=== PATIENT | male | born 1965 | race Caucasian/White ===

== ENCOUNTER 2016-11-04 16:57 | Inpatient (IN) | payer OTHER ==
--- NOTE | 2016-11-04 17:32 | PDOC ---
History of Present Illness - General Chief Complaint: Wound Infection Stated Complaint: INFECTION Time Seen by Provider: 11/04/16 17:27 History Source: Patient - History of Present Illness Timing/Duration: reports: other Location: reports: other (L foot) Past History - Past Medical History Allergies/Adverse Reactions: Allergies Allergy/AdvReac Type Severity Reaction Status Date / Time No Known Allergies Allergy Verified 11/04/16 17:01 Home Medications: Ambulatory Orders Glipizide [Glucotrol -] 10 mg PO BID@0700,1630 #0 tablet 10/29/14 Aspirin [ASA -] 81 mg PO DAILY 12/04/14 Liraglutide [Victoza -] 1.2 mg SQ DAILY@0700 pen.injctr 06/14/15 Insulin (Levemir) [Levemir Vial] 30 units SQ HS 08/06/15 Acetaminophen [Tylenol .Regular Strength -] 650 mg PO Q4H PRN #0 tablet Simvastatin 40 mg PO DAILY 08/25/15 Lisinopril [Prinivil] 5 mg PO DAILY #30 tablet 09/08/15 Anemia: No Asthma: No Cancer: No Cardiac Disorders: No CVA: No COPD: No CHF: No Dementia: No Diabetes: Yes GI Disorders: No Disorders: No HTN: Yes Hypercholesterolemia: Yes Liver Disease: No Suicide Attempt (Hx): No Seizures: No Thyroid Disease: No - Surgical History Abdominal Surgery: No Appendectomy: No Cardiac Surgery: No Cholecystectomy: No Lung Surgery: No Neurologic Surgery: No Orthopedic Surgery: Yes (rt foot 2nd toe amputation) - Immunization History Immunization Up to Date: No - Psycho/Social/Smoking Cessation Hx Anxiety: No Suicidal Ideation: No Smoking Status: No Smoking History: Never smoked Have you smoked in the past 12 months: No Number of Cigarettes Smoked Daily: 0 Information on smoking cessation initiated: No Hx Alcohol Use: No Drug/Substance Use Hx: No Substance Use Type: None Hx Substance Use Treatment: No Review of Systems - Review of Systems Constitutional: No: Chills, Fever, Malaise *Physical Exam - Vital Signs Last Vital Signs Temp Pulse Resp BP Pulse Ox 98.5 F 118 H 18 128/68 99 11/04/16 16:58 11/04/16 16:58 11/04/16 16:58 11/04/16 16:58 11/04/16 16:58 - Physical Exam General Appearance: Yes: Appropriately Dressed. No: Apparent Distress HEENT: positive: Normal Voice Neck: positive: Supple Respiratory/Chest: negative: Respiratory Distress Extremity: positive: Other (large chronic, appearing ulcer with dried pus to site, no active drainage, w/ +surrounding erythema and diffuse edema of foot extending into leg, unable to palpate pusles 2/2 degree of swelling) Integumentary: positive: Dry, Warm Neurologic: positive: Fully Oriented, Alert, Normal Mood/Affect Medical Decision Making - Medical Decision Making 11/04/16 17:32 51-year-old male, morbid obesity, hypertension, chronic hyperkalemia, CAD, insulin-dependent diabetic, status post right second toe amputation, chronic ulcer of left heel with history of osteomyelitis, on suppressive therapy with bactrim, follows up in wound care clinic, now presents with worsening swelling, pain and erythema to left foot x several days. Now unable to bear weight with his cane and "offload shoe" as per patient. No fever, chills, nausea, vomiting , and feels well otherwise. See exam R/o recurrent osteomyelitis -pain control -IV abx (prior wound cx reviewed, pt was treated w/ vanc and levaquin during prior admission for osteo) -labs including esr/crp -XR -contact PMD for admission 11/04/16 18:23 *DC/Admit/Observation/Transfer Diagnosis at time of Disposition: Cellulitis of foot - Discharge Dispostion Condition at time of disposition: Fair Admit: Yes
[2016-11-04] MEDS ORDERED: VANCOMYCIN 1,000 MG in DEXTROSE 5%-WATER - 250 ML IVPB ONE (18:13)
[2016-11-04] MEDS ORDERED: LEVOFLOXACIN 750 MG IVPB 150 ML IVPB ONE ×2 (18:14→18:57)
[2016-11-04] MEDS ORDERED: VANCOMYCIN 1 GRAM (PRE-DOCKED) 250 ML IVPB ONE (18:56)
[2016-11-04 19:22] LABS: MCHC 30.8 g/dl (32.0-35.9); MEAN CELL VOLUME 62.5 fl (80-96); MEAN PLT VOLUME 6.8 fl (7.5-11.1); PLATELET COUNT 435 K/MM3 (134-434); RDW 18.5 % (11.9-15.9); WHITE BLOOD COUNT 11.1 K/mm3 (4.0-10.0)
[2016-11-04 19:23] LABS: MCH 19.2 pg (25.7-33.7)
[2016-11-04 19:50] LABS: ALBUMIN 2.8 g/dl (3.4-5.0); BILIRUBIN,TOTAL 0.2 mg/dL (0.2-1.0); CALCIUM 8.7 mg/dL (8.5-10.1); COCKROFT - GAULT 104.78; CREATININE 1.7 mg/dL (0.7-1.3); TOT PROT 7.9 g/dl (6.4-8.2)
[2016-11-04 20:29] LABS: ANISOCYTOSIS 2+; HYPOCHROMIA 2+; MICROCYTOSIS 2+; OVALOCYTES 1+; PLATELET ESTIMATE ADEQUATE (NORMAL); POIKILOCYTOSIS 1+; POLYCHROMASIA 1+
[2016-11-05] MEDS ORDERED: ACETAMINOPHEN 325 MG TABLET (FP) PO PRN (00:36)
[2016-11-05 06:36] LABS: BASOPHIL 0.2 % (0-2.0); MCHC 31.5 g/dl (32.0-35.9); MEAN PLT VOLUME 6.5 fl (7.5-11.1); NEUTROPHILS 78.8 % (42.8-82.8); PLATELET COUNT 369 K/MM3 (134-434); RDW 18.6 % (11.9-15.9); WHITE BLOOD COUNT 6.5 K/mm3 (4.0-10.0)
[2016-11-05 06:50] LABS: MCH 19.8 pg (25.7-33.7)
[2016-11-05 06:55] LABS: ALBUMIN 2.4 g/dl (3.4-5.0); CALCIUM 8.4 mg/dL (8.5-10.1); COCKROFT - GAULT 104.78; CREATININE 1.7 mg/dL (0.7-1.3)
[2016-11-05 06:59] LABS: BILIRUBIN,TOTAL 0.2 mg/dL (0.2-1.0)
[2016-11-05] MEDS: INSULIN SLIDING SCALE (NOVOLOG) 1 VIAL SQ SCH ×4 (07:55→22:59)
[2016-11-05] MEDS: glipiZIDE 10 MG TABLET (FP) PO SCH ×2 (07:55→17:17)
[2016-11-05] MEDS ORDERED: glipiZIDE 5 MG TABLET (FP) ONE (07:56)
--- NOTE | 2016-11-05 09:02 | PN ---
Progress Note, Physician Chief Complaint: ID Full note written dictated diabetic man with multiple admission for chronic calcaneal ostomyelitis left foot. Known to be incurable and advised Bactrim surpression therapy whcih he takes sporatically. See podiatry periodically in wound care debridments in recent past NOW with bloody purulent drainage form the heel. - Current Medication List Current Medications: Active Medications Acetaminophen (Tylenol -) 650 mg PO Q6H PRN PRN Reason: FEVER OR PAIN Aspirin (Asa -) 81 mg PO DAILY TIMMY Atorvastatin Calcium (Lipitor -) 20 mg PO HS TIMMY Glipizide (Glucotrol -) 10 [facility]I [facility] Last Admin: 11/05/16 07:55 Dose: 10 mg Insulin Aspart (Novolog Vial Sliding Scale -) 1 vial SQ ACHS TIMMY PRN Reason: Protocol Last Admin: 11/05/16 07:55 Dose: Not Given Insulin Detemir (Levemir Vial) 30 units SQ HS TIMMY - Objective Vital Signs: Vital Signs Temperature 98.7 F 11/05/16 07:00 Pulse Rate 97 H 11/05/16 07:00 Respiratory Rate 18 11/05/16 07:00 Blood Pressure 126/72 11/05/16 07:00 O2 Sat by Pulse Oximetry (%) 98 11/05/16 07:00 Labs: CBC, BMP 11/05/16 06:00 11/05/16 06:00 Problem List - Problems (1) Chronic osteomyelitis Code(s): M86.60 - OTHER CHRONIC OSTEOMYELITIS, UNSPECIFIED SITE (2) Diabetes 1.5, managed as type 1 Code(s): E13.9 - OTHER SPECIFIED DIABETES MELLITUS WITHOUT COMPLICATIONS Assessment/Plan Microbiology 07/13/13 12:00 Foot - Left Heel Gram Stain - Final 07/13/13 12:00 Foot - Left Heel Wound Culture - Final Pseudomonas Aeruginosa Providencia Stuartii Citrobacter Freundii Complex Diphtheroid/Corynebacterium 11/30/12 14:00 Blood - Peripheral Venous Blood Culture - Final Streptococcus Mitis Group 10/27/14 13:40 Bone Gram Stain - Final 10/27/14 13:40 Bone Tissue Culture - Final Pseudomonas Aeruginosa Mr S Aureus Vr Ec Faecium Mr S Aureus#2 Bacteroides Fragilis Prevotella Bivia 10/15/14 17:45 Tissue-Other Gram Stain - Final 10/15/14 17:45 Tissue-Other Tissue Culture - Final Staphylococcus Aureus Streptococcus Constellatus 10/15/14 17:45 Bone Gram Stain - Final 10/15/14 17:45 Bone Tissue Culture - Final Staphylococcus Aureus Corynebacterium Minutissumum 10/14/14 09:45 Nares - Mrsa Screen - Right MRSA Screen - Final Mr S Aureus 10/14/14 09:45 Nares - Mrsa Screen - Left MRSA Screen - Final Mr S Aureus 10/13/14 16:16 Blood - Peripheral Venous Blood Culture - Final Staphylococcus Aureus 10/13/14 16:10 Blood - Peripheral Venous Blood Culture - Final Staphylococcus Aureus Laboratory Tests 11/04/16 11/04/16 11/05/16 19:12 19:12 06:00 WBC 11.1 H 6.5 D Hgb 7.5 L D Hct 24.5 L D Plt Count 435 H ESR > 130 H BUN Creatinine Creat Clearance w eGFR 11/05/16 06:00 WBC Hgb Hct Plt Count ESR BUN 33 H Creatinine 1.7 H Creat Clearance w eGFR 42.37 Assessment Chronic osteomyelitis incurable Resistant polymicrobial cultures in past with bacteremias Plan Vancom and Zosyn Wound c/s Amputation again discussed with haley Smith MD
--- NOTE | 2016-11-05 09:30 | HP ---
Admitting History and Physical - Primary Care Physician PCP: Nas Platt - Admission Chief Complaint: not feeling well History of Present Illness: Pt 51-year-old male, morbid obesity, hypertension, chronic hyperkalemia, CAD, insulin-dependent diabetic, status post right second toe amputation, chronic ulcer of left heel with history of osteomyelitis, on suppressive therapy with bactrim,--not taking on regular basis-- follows up in wound care clinic, -- presents with worsening swelling, pain and erythema to left foot x several days. Now unable to bear weight with his cane and "offload shoe" as per patient. No fever, chills, nausea, vomiting, pt given abx and admitted to floor for osteo pt also severly anemic-- transfusion ordered Pt has been advised to see gi for anemia work up many times in past -- did not go recently shari was d/[place]ron also due to hyperkalemia chart reviewed pt seen in er History Source: Patient Limitations to Obtaining History: No Limitations - Past Medical History Cardiovascular: Yes: HTN, Hyperlipdemia Infectious Disease: Yes: Other Musculoskeletal: Yes: Other (chronic non healing ulcers of rt foot) Endocrine: Yes: Diabetes Mellitus - Past Surgical History Past Surgical History: Yes: Amputation (right foot --2 nd toe) - Smoking History Smoking history: Never smoked Have you smoked in the past 12 months: No Aproximately how many cigarettes per day: 0 - Alcohol/Substance Use Hx Alcohol Use: No - Social History ADL: Independent History of Recent Travel: No Home Medications - Allergies Allergies/Adverse Reactions: Allergies Allergy/AdvReac Type Severity Reaction Status Date / Time No Known Allergies Allergy Verified 11/04/16 17:01 - Home Medications Home Medications: Ambulatory Orders Glipizide [Glucotrol -] 10 mg PO BID@0700,1630 #0 tablet 10/29/14 Aspirin [ASA -] 81 mg PO DAILY 12/04/14 Insulin (Levemir) [Levemir Vial] 30 units SQ HS 08/06/15 Acetaminophen [Tylenol .Regular Strength -] 650 mg PO Q4H PRN #0 tablet Simvastatin 40 mg PO DAILY 08/25/15 Hydrochlorothiazide [Hctz -] 25 mg PO DAILY 11/04/16 Family Disease History - Family Disease History Family Disease History: Diabetes: Father, Heart Disease: Father Review of Systems - Review of Systems Constitutional: reports: No Symptoms Eyes: reports: No Symptoms Neck: reports: No Symptoms Cardiovascular: reports: No Symptoms Respiratory: reports: SOB on Exertion Gastrointestinal: reports: No Symptoms Genitourinary: reports: No Symptoms Integumentary: reports: Wound. denies: No Symptoms Neurological: reports: No Symptoms Endocrine: reports: No Symptoms Psychiatric: reports: No Symptoms Physical Examination Vital Signs: Vital Signs Temperature 98.7 F 11/05/16 07:00 Pulse Rate 97 H 11/05/16 07:00 Respiratory Rate 18 11/05/16 07:00 Blood Pressure 126/72 11/05/16 07:00 O2 Sat by Pulse Oximetry (%) 98 11/05/16 07:00 Constitutional: Yes: No Distress, Calm Eyes: Yes: Conjunctiva Clear Neck: Yes: Supple Cardiovascular: Yes: Regular Rate and Rhythm Respiratory: Yes: CTA Bilaterally Gastrointestinal: Yes: Normal Bowel Sounds, Soft Edema: No Wound/Incision: Yes: Other (right heel- chronic wound) Psychiatric: Yes: Alert Labs: CBC, BMP 11/05/16 06:00 11/05/16 06:00 Imaging - Results Chest X-ray: Report Reviewed X-ray: Report Reviewed EKG: Report Reviewed Problem List - Problems (1) Chronic osteomyelitis Code(s): M86.60 - OTHER CHRONIC OSTEOMYELITIS, UNSPECIFIED SITE (2) Diabetes 1.5, managed as type 1 Code(s): E13.9 - OTHER SPECIFIED DIABETES MELLITUS WITHOUT COMPLICATIONS (3) Abnormal EKG Code(s): R94.31 - ABNORMAL ELECTROCARDIOGRAM [ECG] [EKG] (4) Anemia Code(s): D64.9 - ANEMIA, UNSPECIFIED Qualifiers: Anemia type: other cause (5) CAD (coronary artery disease) Code(s): I25.10 - ATHSCL HEART DISEASE OF [place] CORONARY ARTERY W/O ANG PCTRS (6) Chronic renal insufficiency, stage III (moderate) Code(s): N18.3 - CHRONIC KIDNEY DISEASE, STAGE 3 (MODERATE) Assessment/Plan Discussed with Dr. Gibbs Likely need Amputation. Pt refuses so far discussed in detail with him Will consult vascular surgeon Dr. Miranda to follow Transfuse Again advised that need to see gi as out pt for Anemia work up continue other meds Monitor bgm will follow
[2016-11-05 09:38] LABS: ANISOCYTOSIS 2+; FRAGMENTED CELL 1+; HYPOCHROMIA 3+; MICROCYTOSIS 3+; PLATELET COMMENT2 NO CLOTTING DETECTED; PLATELET ESTIMATE ADEQUATE (NORMAL); POIKILOCYTOSIS 2+; POLYCHROMASIA 1+
[2016-11-05] MEDS ORDERED: FUROSEMIDE 40 MG/4 ML INJECTABLE VIAL IVPUSH ONE (10:00)
[2016-11-05] MEDS: ASPIRIN 81 MG CHEWABLE TABLETS PO SCH (11:01)
[2016-11-05] MEDS: ENOXAPARIN NA (PORCINE) 30 MG/0.3 ML DISP.SYRIN SQ SCH (11:02)
[2016-11-05] MEDS ORDERED: PIPERACILLIN/TAZOB 3.375 GM 50 ML IVPB ONE ×2 (11:04→18:14)
[2016-11-05] MEDS ORDERED: ASPIRIN 81 MG CHEWABLE TABLETS ONE (11:04)
[2016-11-05] MEDS: PIPERACILLIN/TAZOB 3.375 GM 50 ML IVPB SCH ×2 (11:05→18:20)
[2016-11-05] MEDS: VANCOMYCIN 1,500 MG in DEXTROSE 5%-WATER - 500 ML IVPB SCH (11:45)
--- NOTE | 2016-11-05 11:50 | CONS ---
DATE OF CONSULTATION: DATE OF DICTATION: 11/05/2016 This is one of multiple admissions for this 51-year-old poorly-adherent diabetic on insulin, admitted with chronic wound infection of the left calcaneus. He has had multiple prior admissions for the same issue with known diagnosis of chronic osteomyelitis. He has had repeated admissions with bacteremia, including Streptococcus mitis and Staphylococcus aureus, as well as multiple wound cultures obtained through the [facility] showing mixed, often panresistant organisms, including VREF and pseudomonas. He was admitted now in the absence of any fever or chills, noting that the left heel has started to drain. He has been followed by Dr. Garzon, who had recommended, along with myself, that he be maintained on chronic suppressive Bactrim in an effort to try to preserve the limb, which he very much wanted to do. He said that he had been taking the Bactrim sporadically, however, and now has started to drain bloody purulent drainage from the wound. PAST MEDICAL HISTORY: Diabetes mellitus, hyperlipidemia, hypertension. MEDICATIONS: Glipizide, aspirin, insulin, simvastatin, lisinopril. ALLERGIES: None known. SOCIAL HISTORY: Nonsmoker. No history of EtOH. He lives at home. FAMILY HISTORY: Reviewed, noncontributory. REVIEW OF SYSTEMS: All systems reviewed and noncontributory. PHYSICAL EXAMINATION: General: He was a heavyset male, over 300 pounds. Vital Signs: Temperature 98.5, pulse 118, respirations 18, blood pressure 128/68. Neck: Supple. Lungs: Clear to P and A. Heart: S1, S2, regular rhythm without murmur. Abdomen: Soft, nontender without guarding or rebound. Extremities: Left foot dressing with an underlying heel ulcer, large, with active bloody drainage and erythema. Extensive edema of the foot noted. White count 11.1, hemoglobin 7.5, platelets 435. BUN 34, creatinine 1.7. ESR 130. X-ray of the foot shows destruction of the calcanean remnant, consistent with osteomyelitis. ASSESSMENT: Recurrent cellulitis and chronically infected left heel wound with underlying osteomyelitis; has had previous MRIs in the past, including 2016, consistent with diagnosis of calcaneal osteomyelitis. His infection is and has been thought to be incurable. Clearly, he would benefit from a definitive amputation. He has resistant organisms, thus awaiting an isolation bed. A wound culture has been sent, currently pending, and he will be empirically treated with vancomycin and Zosyn. Surgical consultation should be obtained with a discussion, once again, of the need for amputation. SAMMY TODD M.D. [id number]
[2016-11-05] MEDS ORDERED: FUROSEMIDE 40 MG/4 ML INJECTABLE VIAL IVPUSH SCH (13:30)
--- NOTE | 2016-11-05 14:24 | EKG ---
Test Reason : Blood Pressure : / mmHG Vent. Rate : 107 BPM Atrial Rate : 107 BPM P-R Int : 174 ms QRS Dur : 066 ms QT Int : 302 ms P-R-T Axes : 030 007 025 degrees QTc Int : 403 ms SINUS TACHYCARDIA POSSIBLE INFERIOR INFARCT (CITED ON OR BEFORE 11-AUG-2011) ABNORMAL ECG WHEN COMPARED WITH ECG OF 21-AUG-2015 20:05, NO SIGNIFICANT CHANGE WAS FOUND Confirmed by DENISHA HUMPHREY, SHO ([id number]) on 11/05/2016 2:23:54 PM Referred By: Confirmed By:SHO DENNY MD
[2016-11-05] MEDS: ATORVASTATIN CA 20 MG TABLET (FP) PO SCH (22:58)
[2016-11-05] MEDS: INSULIN DETEMIR 100 UNITS/ML MDV SQ SCH (22:58)
[2016-11-06 00:30] VITALS: BMI 40.4
[2016-11-06] MEDS: PIPERACILLIN/TAZOB 3.375 GM 50 ML IVPB SCH ×3 (02:33→17:07)
[2016-11-06] MEDS: INSULIN SLIDING SCALE (NOVOLOG) 1 VIAL SQ SCH ×4 (06:12→23:14)
[2016-11-06] MEDS: glipiZIDE 10 MG TABLET (FP) PO SCH ×2 (06:33→17:07)
[2016-11-06 08:05] LABS: MEAN CELL VOLUME 65.6 fl (80-96); MEAN PLT VOLUME 6.8 fl (7.5-11.1); PLATELET COUNT 395 K/MM3 (134-434); RDW 20.8 % (11.9-15.9); WHITE BLOOD COUNT 6.5 K/mm3 (4.0-10.0)
--- NOTE | 2016-11-06 08:17 | PN ---
Progress Note (short form) - Note Progress Note: <Nas Platt - Last Filed: 11/06/16 08:17> - Note Progress Note: Subjective Patient seen and examined. Comfortable. No new issues. Got 2 units of packed RBCs yesterday. Objective Last Vital Signs Temp Pulse Resp BP Pulse Ox 98.3 F 84 18 119/61 96 11/06/16 06:22 11/06/16 06:22 11/06/16 06:22 11/06/16 06:22 11/05/16 19:00 CBC, BMP 11/06/16 06:28 11/06/16 06:28 Laboratory Results - last 24 hr 11/05/16 11/05/16 11/05/16 08:59 10:22 16:55 WBC RBC Hgb Hct MCV MCHC RDW Plt Count MPV Neutrophils % Lymphocytes % Monocytes % Eosinophils % Basophils % Sodium Potassium Chloride Carbon Dioxide Anion Gap BUN Creatinine Creat Clearance w eGFR POC Glucometer 283.81919 176.30850 Random Glucose Hemoglobin A1c % Calcium Total Bilirubin AST ALT Alkaline Phosphatase Total Protein Albumin Blood Type O POSITIVE Antibody Screen Negative Crossmatch See Detail 11/05/16 11/06/16 11/06/16 21:33 05:10 06:05 WBC 6.5 RBC 3.78 L Hgb 7.7 L D Hct 24.9 L D MCV 65.8 L MCHC 31.0 L RDW 20.9 H D Plt Count 413 MPV 7.0 L Neutrophils % 67.8 Lymphocytes % 17.8 D Monocytes % 10.6 H Eosinophils % 3.4 D Basophils % 0.4 Sodium Potassium Chloride Carbon Dioxide Anion Gap BUN Creatinine Creat Clearance w eGFR POC Glucometer 223 137 Random Glucose Hemoglobin A1c % Calcium Total Bilirubin AST ALT Alkaline Phosphatase Total Protein Albumin Blood Type Antibody Screen Crossmatch 11/06/16 11/06/16 11/06/16 06:28 06:28 06:28 WBC 6.5 RBC 3.67 L Hgb 7.7 L Hct 24.0 L MCV 65.6 L MCHC 32.0 RDW 20.8 H Plt Count 395 MPV 6.8 L Neutrophils % Lymphocytes % Monocytes % Eosinophils % Basophils % Sodium 137 Potassium 4.4 Chloride 103 Carbon Dioxide 25 Anion Gap 9 BUN 35 H Creatinine 1.6 H Creat Clearance w eGFR 45.44 POC Glucometer Random Glucose 103 D Hemoglobin A1c % 8.5 H D Calcium 8.2 L Total Bilirubin 0.2 AST 10 L D ALT 15 Alkaline Phosphatase 70 Total Protein 7.0 Albumin 2.4 L Blood Type Antibody Screen Crossmatch Physical Exam Constitutional: Yes: No Distress, Calm Eyes: Yes: Conjunctiva Clear Neck: Yes: Supple Cardiovascular: Yes: Regular Rate and Rhythm Respiratory: Yes: CTA Bilaterally Gastrointestinal: Yes: Normal Bowel Sounds, Soft Edema: No Wound/Incision: Yes: Other (right heel- chronic wound) Psychiatric: Yes: Alert Assessment and Plan Clinically stable. Continue abx. Will transfuse another unit of packed RBC's today. Will consult vascular surgeon also. Follow up labs. Monitor BG. Will follow. Documentation prepared by Rina Bauer, acting as a medical payment poster for Nas Platt MD. <Rina Bauer - Last Filed: 11/06/16 10:26> Problem List - Problems (1) Chronic osteomyelitis Code(s): M86.60 - OTHER CHRONIC OSTEOMYELITIS, UNSPECIFIED SITE (2) Diabetes 1.5, managed as type 1 Code(s): E13.9 - OTHER SPECIFIED DIABETES MELLITUS WITHOUT COMPLICATIONS (3) Abnormal EKG Code(s): R94.31 - ABNORMAL ELECTROCARDIOGRAM [ECG] [EKG] (4) Anemia Code(s): D64.9 - ANEMIA, UNSPECIFIED Qualifiers: Anemia type: other cause (5) CAD (coronary artery disease) Code(s): I25.10 - ATHSCL HEART DISEASE OF [place] CORONARY ARTERY W/O ANG PCTRS (6) Chronic renal insufficiency, stage III (moderate) Code(s): N18.3 - CHRONIC KIDNEY DISEASE, STAGE 3 (MODERATE) <Nas Platt - Last Filed: 11/06/16 08:17>
[2016-11-06] MEDS: VANCOMYCIN 1,500 MG in DEXTROSE 5%-WATER - 500 ML IVPB SCH (09:32)
[2016-11-06 09:43] LABS: BASOPHIL 0.4 % (0-2.0); EOSINOPHIL 3.4 % (0-4.5); MCH 20.4 pg (25.7-33.7); MEAN CELL VOLUME 65.8 fl (80-96); NEUTROPHILS 67.8 % (42.8-82.8); PLATELET COUNT 413 K/MM3 (134-434); RDW 20.9 % (11.9-15.9); WHITE BLOOD COUNT 6.5 K/mm3 (4.0-10.0)
[2016-11-06 09:52] LABS: ALBUMIN 2.4 g/dl (3.4-5.0); BILIRUBIN,TOTAL 0.2 mg/dL (0.2-1.0); CALCIUM 8.2 mg/dL (8.5-10.1); COCKROFT - GAULT 110.7; CREATININE 1.6 mg/dL (0.7-1.3)
[2016-11-06] MEDS: ASPIRIN 81 MG CHEWABLE TABLETS PO SCH (10:55)
[2016-11-06] MEDS: ENOXAPARIN NA (PORCINE) 30 MG/0.3 ML DISP.SYRIN SQ SCH (10:56)
--- NOTE | 2016-11-06 14:37 | PN ---
Progress Note, Physician Chief Complaint: ID Diana Elizalde - Current Medication List Current Medications: Active Medications Acetaminophen (Tylenol -) 650 mg PO Q6H PRN PRN Reason: FEVER OR PAIN Aspirin (Asa -) 81 mg PO DAILY [facility] Last Admin: 11/06/16 10:55 Dose: 81 mg Atorvastatin Calcium (Lipitor -) 20 mg PO HS [facility] Last Admin: 11/05/16 22:58 Dose: 20 mg Enoxaparin Sodium (Lovenox -) 30 mg SQ DAILY [facility] Last Admin: 11/06/16 10:56 Dose: 30 mg Glipizide (Glucotrol -) 10 mg PO BIDI [facility] Last Admin: 11/06/16 06:33 Dose: 10 mg Vancomycin HCl 1,500 mg/ (Dextrose) 500 mls @ 250 mls/hr IVPB DAILY [facility] PRN Reason: Protocol Last Admin: 11/06/16 09:32 Dose: 250 mls/hr Piperacillin Sod/Tazobactam Sod (Zosyn 3.375gm Ivpb (Pre-Docked)) 50 mls @ 100 mls/hr IVPB Q8H-IV TIMMY PRN Reason: Protocol Last Admin: 11/06/16 10:56 Dose: 100 mls/hr Insulin Aspart (Novolog Vial Sliding Scale -) 1 vial SQ ACHS [facility] PRN Reason: Protocol Last Admin: 11/06/16 12:08 Dose: 4 unit Insulin Detemir (Levemir Vial) 30 units SQ HS [facility] Last Admin: 11/05/16 22:58 Dose: 30 units - Objective Vital Signs: Vital Signs Temperature 98.4 F 11/06/16 10:00 Pulse Rate 90 11/06/16 10:00 Respiratory Rate 18 11/06/16 10:00 Blood Pressure 123/60 11/06/16 10:00 O2 Sat by Pulse Oximetry (%) 96 11/05/16 19:00 Constitutional: Yes: Obese Neck: Yes: WNL, Supple Cardiovascular: Yes: S1, S2 Respiratory: Yes: WNL, Regular, CTA Bilaterally Gastrointestinal: Yes: WNL, Normal Bowel Sounds, Soft. No: Tenderness Extremities: Yes: Other (Lrge heal defect granultion tissue with drainage serosnguinous drainage) Labs: CBC, BMP 11/06/16 06:28 11/06/16 06:28 Problem List - Problems (1) Chronic osteomyelitis Code(s): M86.60 - OTHER CHRONIC OSTEOMYELITIS, UNSPECIFIED SITE (2) Diabetes 1.5, managed as type 1 Code(s): E13.9 - OTHER SPECIFIED DIABETES MELLITUS WITHOUT COMPLICATIONS Assessment/Plan Microbiology 11/04/16 19:12 Foot - Left Heel Gram Stain - Final 11/04/16 19:12 Foot - Left Heel Wound Culture - Preliminary Non Lactose Fermenting Gnb Pending Organism Laboratory Tests 11/04/16 11/06/16 11/06/16 19:12 06:28 06:28 WBC 6.5 Hgb 7.7 L Hct 24.0 L Plt Count 395 ESR > 130 H Creat Clearance w eGFR 45.44 assessment Chronic open heel wound deep with calcaneal osteomyelitis incurable Mixed culture wound pendng Plan Dr Hamemr to see IV antibiotics Anticipate only short term IV therapy to treat the edema drainage then Bactrim ? Luis HUMPHREY
--- NOTE | 2016-11-06 16:23 | CONSULT ---
Consult - History of Present Illness History of Present Illness: 51 yo male DM with chronic infection of left heel treated with long-term antibiotics and multiple surgical debridements. He has been on PO Bactrim which he takes sporadically. His heel had begun to drain and he was [facility] for over 1 year. he now has recurrent wound drainage and x-ray showing loss of bone in the calcaneus. ID consult has deemed his infection "incurable." He has no pain. He walks with crutches. - History Source History Provided By: Patient, Medical Record - Past Medical History PLATE WASHER: Yes: Peripheral Neuropathy Cardio/Vascular: Yes: HTN, Hyperlipdemia Infectious Disease: Yes: Other Musculoskeletal: Yes: Other (chronic non healing ulcers of rt foot) Endocrine: Yes: Diabetes Mellitus - Past Surgical History Past Surgical History: Yes: Amputation (right foot --2 nd toe) - Alcohol/Substance Use Hx Alcohol Use: No (quit 10 years ago) - Smoking History Smoking history: Never smoked Have you smoked in the past 12 months: No Aproximately how many cigarettes per day: 0 - Social History Usual Living Arrangement: With Parent ADL: Independent History of Recent Travel: No Home Medications - Allergies Allergies/Adverse Reactions: Allergies Allergy/AdvReac Type Severity Reaction Status Date / Time No Known Allergies Allergy Verified 11/04/16 17:01 - Home Medications Home Medications: Ambulatory Orders Glipizide [Glucotrol -] 10 mg PO BID@0700,1630 #0 tablet 10/29/14 Aspirin [ASA -] 81 mg PO DAILY 12/04/14 Insulin (Levemir) [Levemir Vial] 25 units SQ HS 08/06/15 Acetaminophen [Tylenol .Regular Strength -] 650 mg PO Q4H PRN #0 tablet Simvastatin 40 mg PO DAILY 08/25/15 Hydrochlorothiazide [Hctz -] 25 mg PO DAILY 11/04/16 Sulfamethoxazole/Trimethoprim [Bactrim Ds Tablet] 1 tab PO BID 11/06/16 Family Disease History - Family Disease History Family Disease History: Diabetes: Father, Heart Disease: Father Physical Exam Vital Signs: Vital Signs Temperature 98.3 F 11/06/16 15:30 Pulse Rate 88 11/06/16 15:30 Respiratory Rate 18 11/06/16 15:30 Blood Pressure 128/75 04/17/17 15:30 O2 Sat by Pulse Oximetry (%) 96 11/05/16 19:00 Constitutional: Yes: Obese Edema: Yes Edema: LLE: 2+ Peripheral Pulses WNL: Yes (Palp DP/PT right, PT left) Wound/Incision: Yes: Other (Left heel deformed with plantar depression and open wound probes into soft bone. Small amount of serous drainage.) Labs: CBC, BMP 11/06/16 06:28 11/06/16 06:28 Imaging - Results X-ray: Image Reviewed (Left calcaneus thinned with chronic changes of osteomyelitis.) Problem List - Problems (1) Chronic osteomyelitis Assessment/Plan: Left heel infection is chronic with severe loss of bone from infection and prior debridements. I agree in principle that a below-knee amputation would allow leg to heal and allow patient to resume ambulation with a prosthesis. I have explained this to him but he adamantly refuses to allow amputation at this time. We discussed the pros and cons of the procedure and he will consider it in the future. Code(s): M86.60 - OTHER CHRONIC OSTEOMYELITIS, UNSPECIFIED SITE (2) Diabetes Code(s): E11.9 - TYPE 2 DIABETES MELLITUS WITHOUT COMPLICATIONS Qualifiers: Diabetes mellitus type: type 1 Diabetes mellitus complication status: with circulatory complication Diabetes mellitus complication detail: with peripheral angiopathy without gangrene Qualified Code(s): E10.51 - Type 1 diabetes mellitus with diabetic peripheral angiopathy without gangrene
[2016-11-06] MEDS ORDERED: INSULIN (NOVOLOG) ASPART 100 UNITS/ML 10ML VIAL ONE (16:49)
[2016-11-06] MEDS ORDERED: glipiZIDE 5 MG TABLET (FP) ONE (16:49)
--- NOTE | 2016-11-06 20:27 | CONSULT ---
Consult Consult Specialty:: Podiatry Reason for Consultation:: ulceration of the left plantar heel - History of Present Illness Chief Complaint: Cellulitis of the left leg secondary to chronic ulceration of the left plantar heel. History of Present Illness: Patient suffers from a chronic ulceration of the left plantar heel. He has been under the care of the wound healing center for the past two years and was referred there by me. He has a history of inconsistent attendance at the wound healing center. He has undergone numerous courses of po and iv antibiotics over this time period. Patient presented two days ago to the emergency room with renewed complaints of pain and swelling in the left leg. - History Source History Provided By: Medical Record - Past Medical History ACCOUNTS PAYABLE CLERK: Yes: Peripheral Neuropathy Cardio/Vascular: Yes: HTN, Hyperlipdemia Infectious Disease: Yes: Other Musculoskeletal: Yes: Other (chronic non healing ulcers of rt foot) Endocrine: Yes: Diabetes Mellitus - Past Surgical History Past Surgical History: Yes: Amputation (right foot --2 nd toe) - Alcohol/Substance Use Hx Alcohol Use: No (quit 10 years ago) - Smoking History Smoking history: Never smoked Have you smoked in the past 12 months: No Aproximately how many cigarettes per day: 0 - Social History Usual Living Arrangement: With Parent ADL: Independent History of Recent Travel: No Home Medications - Allergies Allergies/Adverse Reactions: Allergies Allergy/AdvReac Type Severity Reaction Status Date / Time No Known Allergies Allergy Verified 11/04/16 17:01 - Home Medications Home Medications: Ambulatory Orders Glipizide [Glucotrol -] 10 mg PO BID@0700,1630 #0 tablet 10/29/14 Aspirin [ASA -] 81 mg PO DAILY 12/04/14 Insulin (Levemir) [Levemir Vial] 25 units SQ HS 08/06/15 Acetaminophen [Tylenol .Regular Strength -] 650 mg PO Q4H PRN #0 tablet Simvastatin 40 mg PO DAILY 08/25/15 Hydrochlorothiazide [Hctz -] 25 mg PO DAILY 11/04/16 Sulfamethoxazole/Trimethoprim [Bactrim Ds Tablet] 1 tab PO BID 11/06/16 Family Disease History - Family Disease History Family Disease History: Diabetes: Father, Heart Disease: Father Physical Exam Vital Signs: Vital Signs Temperature 98.1 F 11/06/16 17:00 Pulse Rate 92 H 11/06/16 17:00 Respiratory Rate 18 11/06/16 17:00 Blood Pressure 147/86 11/06/16 17:00 O2 Sat by Pulse Oximetry (%) 96 11/05/16 19:00 Edema: Yes (Left lower leg and foot ) Peripheral Pulses WNL: Yes Wound/Incision: Yes: Other (Left plantar wound shows chronic inflammatory tissue and extends to deep tissue. No purulence noted in the wound.) Labs: CBC, BMP 11/06/16 06:28 11/06/16 06:28 Imaging - Results X-ray: Other (Left foot x-ray shows significant erosion of the calcaneous. Most of the posterior tubercle has eroded. Talus is intact.) MRI: Other (MRI from 09/18/2015 shows intact posterior tubercle but significant bone marrow edema throughout the body of the calcaneus. Talus remains unaffected.) Assessment/Plan Assessment Chronic osteomyelitis of the left calcaneus has eroded most of the posterior tubercle. This chronic condition seems uncurable. Below the knee amputation may be the best course of action to resolve the problem. The calcaneus is not salvageable.
[2016-11-06] MEDS: ATORVASTATIN CA 20 MG TABLET (FP) PO SCH (23:13)
[2016-11-06] MEDS: INSULIN DETEMIR 100 UNITS/ML MDV SQ SCH (23:13)
[2016-11-07] MEDS: PIPERACILLIN/TAZOB 3.375 GM 50 ML IVPB SCH ×3 (01:47→17:01)
[2016-11-07] MEDS ORDERED: glipiZIDE 5 MG TABLET (FP) ONE ×2 (05:45→16:34)
[2016-11-07] MEDS: glipiZIDE 10 MG TABLET (FP) PO SCH ×2 (06:00→17:02)
[2016-11-07] MEDS: INSULIN SLIDING SCALE (NOVOLOG) 1 VIAL SQ SCH ×4 (06:00→23:14)
[2016-11-07] MEDS ORDERED: INSULIN (NOVOLOG) ASPART 100 UNITS/ML 10ML VIAL ONE ×2 (06:49→10:07)
--- NOTE | 2016-11-07 08:18 | PN ---
Progress Note (short form) - Note Progress Note: patient seen and examined today CONSULTS noted and appreciated Denies pain Comfortable Vital Sign Temp 98.9 F 11/07/16 06:00 Pulse 77 11/07/16 06:00 Resp 20 11/07/16 06:00 BP 109/63 11/07/16 06:00 Pulse Ox 96 11/05/16 19:00 Intake & Output 11/06/16 11/06/16 11/07/16 11:59 23:59 11:59 Intake Total 170 880 Balance 170 880 Intake: IVPB 50 50 Oral 120 480 Packed Cells 350 Other: Voiding Method Toilet Toilet Toilet # Unmeasured Voids Void 1 1 Active Medications Acetaminophen (Tylenol -) 650 mg PO Q6H PRN PRN Reason: FEVER OR PAIN Aspirin (Asa -) 81 mg PO DAILY [facility] Last Admin: 11/06/16 10:55 Dose: 81 mg Atorvastatin Calcium (Lipitor -) 20 mg PO HS [facility] Last Admin: 11/06/16 23:13 Dose: 20 mg Enoxaparin Sodium (Lovenox -) 30 mg SQ DAILY [facility] Last Admin: 11/06/16 10:56 Dose: 30 mg Glipizide (Glucotrol -) 10 mg PO BIDI [facility] Last Admin: 11/07/16 06:00 Dose: 10 mg Vancomycin HCl 1,500 mg/ (Dextrose) 500 mls @ 250 mls/hr IVPB DAILY [facility] PRN Reason: Protocol Last Admin: 11/06/16 09:32 Dose: 250 mls/hr Piperacillin Sod/Tazobactam Sod (Zosyn 3.375gm Ivpb (Pre-Docked)) 50 mls @ 100 mls/hr IVPB Q8H-IV [facility] PRN Reason: Protocol Last Admin: 11/07/16 01:47 Dose: 100 mls/hr Insulin Aspart (Novolog Vial Sliding Scale -) 1 vial SQ ACHS [facility] PRN Reason: Protocol Last Admin: 11/07/16 06:00 Dose: Not Given Insulin Detemir (Levemir Vial) 30 units SQ [facility] Last Admin: 11/06/16 23:13 Dose: 30 units Todays Labs - Pending Physical Exam Constitutional: Yes: No Distress, Calm Eyes: Yes: Conjunctiva Clear Neck: Yes: Supple Cardiovascular: Yes: Regular Rate and Rhythm Respiratory: Yes: CTA Bilaterally Gastrointestinal: Yes: Normal Bowel Sounds, Soft Edema: No Wound/Incision: Yes: Other (right heel- chronic wound) Psychiatric: Yes: Alert Assessment and Plan Clinically stable. Continue abx. Follow-up labs I discussed with Dr. Hammer also today BKA recommended Patient is somewhat frustrated--- after prolonged discussion willing to consider --- but says think about it Continue present care Monitor blood sugar Will follow Problem List - Problems (1) Chronic osteomyelitis Code(s): M86.60 - OTHER CHRONIC OSTEOMYELITIS, UNSPECIFIED SITE (2) Diabetes 1.5, managed as type 1 Code(s): E13.9 - OTHER SPECIFIED DIABETES MELLITUS WITHOUT COMPLICATIONS (3) Abnormal EKG Code(s): R94.31 - ABNORMAL ELECTROCARDIOGRAM [ECG] [EKG] (4) Anemia Code(s): D64.9 - ANEMIA, UNSPECIFIED Qualifiers: Anemia type: other cause (5) CAD (coronary artery disease) Code(s): I25.10 - ATHSCL HEART DISEASE OF [place] CORONARY ARTERY W/O ANG PCTRS (6) Chronic renal insufficiency, stage III (moderate) Code(s): N18.3 - CHRONIC KIDNEY DISEASE, STAGE 3 (MODERATE)
[2016-11-07 08:21] LABS: BASOPHIL 0.3 % (0-2.0); MCH 21.3 pg (25.7-33.7); MCHC 31.5 g/dl (32.0-35.9); MEAN CELL VOLUME 67.4 fl (80-96); MEAN PLT VOLUME 6.9 fl (7.5-11.1); NEUTROPHILS 63.7 % (42.8-82.8); PLATELET COUNT 428 K/MM3 (134-434); WHITE BLOOD COUNT 6.7 K/mm3 (4.0-10.0)
[2016-11-07 08:34] LABS: ALBUMIN 2.4 g/dl (3.4-5.0); BILIRUBIN,TOTAL 0.4 mg/dL (0.2-1.0); CALCIUM 8.1 mg/dL (8.5-10.1); COCKROFT - GAULT 126.5; CREATININE 1.4 mg/dL (0.7-1.3)
[2016-11-07] MEDS ORDERED: VANCOMYCIN 1,500 MG in SODIUM CHLORIDE 500 ML IVPB SCH (10:36)
[2016-11-07] MEDS: ENOXAPARIN NA (PORCINE) 30 MG/0.3 ML DISP.SYRIN SQ SCH (10:38)
[2016-11-07] MEDS: ASPIRIN 81 MG CHEWABLE TABLETS PO SCH (10:38)
[2016-11-07] MEDS: VANCOMYCIN 1,500 MG in SODIUM CHLORIDE 500 ML IVPB SCH (13:40)
--- NOTE | 2016-11-07 13:44 | PN ---
Progress Note, Physician History of Present Illness: No c/o foot pain No fever/ chills Afebrile - Current Medication List Current Medications: Active Medications Acetaminophen (Tylenol -) 650 mg PO Q6H PRN PRN Reason: FEVER OR PAIN Aspirin (Asa -) 81 mg PO DAILY [facility] Last Admin: 11/07/16 10:38 Dose: 81 mg Atorvastatin Calcium (Lipitor -) 20 mg PO HS [facility] Last Admin: 11/06/16 23:13 Dose: 20 mg Enoxaparin Sodium (Lovenox -) 30 mg SQ DAILY [facility] Last Admin: 11/07/16 10:38 Dose: 30 mg Glipizide (Glucotrol -) 10 mg PO BIDI [facility] Last Admin: 11/07/16 06:00 Dose: 10 mg Piperacillin Sod/Tazobactam Sod (Zosyn 3.375gm Ivpb (Pre-Docked)) 50 mls @ 100 mls/hr IVPB Q8H-IV [facility] PRN Reason: Protocol Last Admin: 11/07/16 10:38 Dose: 100 mls/hr Vancomycin HCl 1,500 mg/ (Sodium Chloride) 500 mls @ 250 mls/hr IVPB DAILY@ 1100 [facility] PRN Reason: Protocol Stop: 11/11/16 12:59 Last Admin: 11/07/16 13:40 Dose: 250 mls/hr Insulin Aspart (Novolog Vial Sliding Scale -) 1 vial SQ ACHS [facility] PRN Reason: Protocol Last Admin: 11/07/16 11:22 Dose: Not Given Insulin Detemir (Levemir Vial) 30 units SQ [facility] Last Admin: 11/06/16 23:13 Dose: 30 units - Objective Vital Signs: Vital Signs Temperature 98.6 F 11/07/16 09:00 Pulse Rate 90 11/07/16 09:00 Respiratory Rate 18 11/07/16 09:00 Blood Pressure 135/69 11/07/16 09:00 O2 Sat by Pulse Oximetry (%) 96 11/05/16 19:00 Constitutional: Yes: No Distress Eyes: Yes: Conjunctiva Clear Cardiovascular: Yes: Regular Rate and Rhythm, S1, S2 Respiratory: Yes: CTA Bilaterally Gastrointestinal: Yes: Normal Bowel Sounds, Soft. No: Tenderness Extremities: Yes: Other (heel ulcer with granulation tissue No purulent drainage or foul odor) Labs: CBC, BMP 11/07/16 06:00 11/07/16 06:00 Assessment/Plan Non healing foot ulcer Chronic osteomyelitis of foot Diabetes mellitus Agreeable to BKA Continue empiric zosyn/ vancomycin
[2016-11-07] MEDS: INSULIN DETEMIR 100 UNITS/ML MDV SQ SCH (23:12)
[2016-11-07] MEDS: ATORVASTATIN CA 20 MG TABLET (FP) PO SCH (23:12)
[2016-11-08] MEDS: PIPERACILLIN/TAZOB 3.375 GM 50 ML IVPB SCH ×3 (01:21→18:26)
[2016-11-08] MEDS ORDERED: glipiZIDE 5 MG TABLET (FP) ONE (06:21)
[2016-11-08] MEDS: glipiZIDE 10 MG TABLET (FP) PO SCH ×2 (06:37→16:24)
[2016-11-08] MEDS: INSULIN SLIDING SCALE (NOVOLOG) 1 VIAL SQ SCH ×4 (06:38→22:34)
[2016-11-08] MEDS: VANCOMYCIN 1,500 MG in DEXTROSE 5%-WATER - 500 ML IVPB SCH (09:21)
[2016-11-08] MEDS: ENOXAPARIN NA (PORCINE) 30 MG/0.3 ML DISP.SYRIN SQ SCH (10:54)
[2016-11-08] MEDS: ASPIRIN 81 MG CHEWABLE TABLETS PO SCH (10:54)
--- NOTE | 2016-11-08 11:42 | PN ---
Progress Note, Physician Chief Complaint: Events noted Pt is considering foot amputation - he is anxious about it But he is optimistic - Current Medication List Current Medications: Active Medications Acetaminophen (Tylenol -) 650 mg PO Q6H PRN PRN Reason: FEVER OR PAIN Aspirin (Asa -) 81 mg PO DAILY [facility] Last Admin: 11/08/16 10:54 Dose: 81 mg Atorvastatin Calcium (Lipitor -) 20 mg PO HS [facility] Last Admin: 11/07/16 23:12 Dose: 20 mg Enoxaparin Sodium (Lovenox -) 30 mg SQ DAILY [facility] Last Admin: 11/08/16 10:54 Dose: 30 mg Glipizide (Glucotrol -) 10 mg PO BIDI [facility] Last Admin: 11/08/16 06:37 Dose: 10 mg Piperacillin Sod/Tazobactam Sod (Zosyn 3.375gm Ivpb (Pre-Docked)) 50 mls @ 100 mls/hr IVPB Q8H-IV [facility] PRN Reason: Protocol Last Admin: 11/08/16 10:55 Dose: 100 mls/hr Vancomycin HCl 1,500 mg/ (Sodium Chloride) 500 mls @ 250 mls/hr IVPB DAILY@ 1100 [facility] PRN Reason: Protocol Stop: 11/11/16 12:59 Last Admin: 11/07/16 13:40 Dose: 250 mls/hr Insulin Aspart (Novolog Vial Sliding Scale -) 1 vial SQ ACHS [facility] PRN Reason: Protocol Last Admin: 11/08/16 11:25 Dose: Not Given Insulin Detemir (Levemir Vial) 30 units SQ [facility] Last Admin: 11/07/16 23:12 Dose: 30 units - Objective Vital Signs: Vital Signs Temperature 98.0 F 11/08/16 09:07 Pulse Rate 84 11/08/16 09:07 Respiratory Rate 18 11/08/16 09:07 Blood Pressure 128/69 11/08/16 09:07 O2 Sat by Pulse Oximetry (%) 99 11/07/16 21:00 Constitutional: Yes: No Distress Cardiovascular: Yes: Regular Rate and Rhythm Respiratory: Yes: Rhonchi Gastrointestinal: Yes: Normal Bowel Sounds, Soft, Abdomen, Obese. 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 Code(s): F06.4 - ANXIETY DISORDER DUE TO KNOWN PHYSIOLOGICAL CONDITION (2) Chronic osteomyelitis Code(s): M86.60 - OTHER CHRONIC OSTEOMYELITIS, UNSPECIFIED SITE (3) Chronic renal insufficiency, stage III (moderate) Code(s): N18.3 - CHRONIC KIDNEY DISEASE, STAGE 3 (MODERATE) (4) Diabetes 1.5, managed as type 1 Code(s): E13.9 - OTHER SPECIFIED DIABETES MELLITUS WITHOUT COMPLICATIONS (5) Anemia Code(s): D64.9 - ANEMIA, UNSPECIFIED Qualifiers: Anemia type: other cause (6) CAD (coronary artery disease) Code(s): I25.10 - ATHSCL HEART DISEASE OF [place] CORONARY ARTERY W/O ANG PCTRS (7) Diabetes Code(s): E11.9 - TYPE 2 DIABETES MELLITUS WITHOUT COMPLICATIONS Qualifiers: Diabetes mellitus type: type 1 Diabetes mellitus complication status: with circulatory complication Diabetes mellitus complication detail: with peripheral angiopathy without gangrene Qualified Code(s): E10.51 - Type 1 diabetes mellitus with diabetic peripheral angiopathy without gangrene Assessment/Plan PLAN IV antibiotics per ID Pt is anxious about amputation but is agreeable to it-- he wants it done in December though Will speak with DR Tejada about this , need to consider the urgency in amputation pain control monitor sugars, maintain good glucose control check labs
[2016-11-08] MEDS: VANCOMYCIN 1,500 MG in SODIUM CHLORIDE 500 ML IVPB SCH (13:48)
[2016-11-08] MEDS ORDERED: INSULIN (NOVOLOG) ASPART 100 UNITS/ML 10ML VIAL ONE (16:26)
--- NOTE | 2016-11-08 18:16 | CON.PSL ---
Psychology Consult Consult Specialty:: Clinical Psychology Referred by:: Kelly Huff MD Reason for Consultation:: Patient is experiencing anxiety and bouts of depression associated with pending amputation of foot. History Provided By: Patient Limitations to Obtaining History: No Limitations Current Medications: Active Medications Acetaminophen (Tylenol -) 650 mg PO Q6H PRN PRN Reason: FEVER OR PAIN Aspirin (Asa -) 81 mg PO DAILY [facility] Last Admin: 11/08/16 10:54 Dose: 81 mg Atorvastatin Calcium (Lipitor -) 20 mg PO HS [facility] Last Admin: 11/07/16 23:12 Dose: 20 mg Enoxaparin Sodium (Lovenox -) 30 mg SQ DAILY [facility] Last Admin: 11/08/16 10:54 Dose: 30 mg Glipizide (Glucotrol -) 10 mg PO BIDI [facility] Last Admin: 11/08/16 16:24 Dose: 10 mg Piperacillin Sod/Tazobactam Sod (Zosyn 3.375gm Ivpb (Pre-Docked)) 50 mls @ 100 mls/hr IVPB Q8H-IV [facility] PRN Reason: Protocol Last Admin: 11/08/16 10:55 Dose: 100 mls/hr Vancomycin HCl 1,500 mg/ (Sodium Chloride) 500 mls @ 250 mls/hr IVPB DAILY@ 1100 [facility] PRN Reason: Protocol Stop: 11/11/16 12:59 Last Admin: 11/08/16 13:48 Dose: 250 mls/hr Insulin Aspart (Novolog Vial Sliding Scale -) 1 vial SQ ACHS [facility] PRN Reason: Protocol Last Admin: 11/08/16 17:24 Dose: 2 unit Insulin Detemir (Levemir Vial) 30 units SQ [facility] Last Admin: 11/07/16 23:12 Dose: 30 units Allergies: Allergies Allergy/AdvReac Type Severity Reaction Status Date / Time No Known Allergies Allergy Verified 11/04/16 17:01 Does patient have pain?: No Hx Alcohol Use: Yes (Limited while he was in his 20's.) Hx Substance Use: No Substance Use Type: Alcohol Hx Substance Use Treatment: No - Family Member Sister Hx Family Psychiatric Problems: (Suicide in extended family.) Hx Family Depression: Yes Hx Family Anxiety Symptoms: Yes Hx Family ADHD: No Current Medical Exam-Psy Orientation: Time, Person, Place Immediate Term Memory: 2/3, 3/3 Expressive: Coherent Receptive: Age Appropriate Comprehension of Spoken Words Hallucinations: Absent Thought Process: Intact Depression: Mild (The patient denies self harm or thoughts of hurting others. He is generally very positive in his beliefs about coping with his upcoming foot amputation. He is seeking a support group of similar amputees and also is open and desiring of counseling for himself.) Hopelessness: No Loss of Interest: No Anxiety Level: Moderate Danger to Self and Others: No (He did not indicate any problems with sleep or appetite. He is obese and realizes that he has to watch his intake of carbohydrates.) Sleep: Fair (Sleep varies from good to inadequate. 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 He looks forward to joining a support group as well as continuing with counseling. The plan is to provide supportive psychotherapy incorporating anxiety reduction interventions and status post surgery pain management if indicated. Specific treatments encompass relaxation and guided imagery, hypnotherapy, supportive therapy (allowing for venting of feelings), cognitive behavior therapy and biofeedback monitoring as a positive reinforcement tool if desired. Thank you for the opportunity to support this pleasant gentleman.
[2016-11-08] MEDS: INSULIN DETEMIR 100 UNITS/ML MDV SQ SCH (22:32)
[2016-11-08] MEDS: ATORVASTATIN CA 20 MG TABLET (FP) PO SCH (22:33)
[2016-11-09] MEDS: PIPERACILLIN/TAZOB 3.375 GM 50 ML IVPB SCH ×3 (01:27→17:00)
[2016-11-09] MEDS ORDERED: glipiZIDE 5 MG TABLET (FP) ONE (05:39)
[2016-11-09] MEDS: INSULIN SLIDING SCALE (NOVOLOG) 1 VIAL SQ SCH ×4 (06:33→22:08)
[2016-11-09] MEDS: glipiZIDE 10 MG TABLET (FP) PO SCH ×2 (06:33→17:00)
[2016-11-09 07:06] LABS: MCH 21.6 pg (25.7-33.7); MCHC 31.4 g/dl (32.0-35.9); MEAN CELL VOLUME 68.8 fl (80-96); MEAN PLT VOLUME 6.8 fl (7.5-11.1); PLATELET COUNT 434 K/MM3 (134-434); RDW 22.9 % (11.9-15.9)
[2016-11-09 07:28] LABS: CALCIUM 8.5 mg/dL (8.5-10.1); COCKROFT - GAULT 147.6; CREATININE 1.2 mg/dL (0.7-1.3)
[2016-11-09] MEDS: ENOXAPARIN NA (PORCINE) 30 MG/0.3 ML DISP.SYRIN SQ SCH (10:16)
[2016-11-09] MEDS: ASPIRIN 81 MG CHEWABLE TABLETS PO SCH (10:17)
--- NOTE | 2016-11-09 10:56 | PN ---
Progress Note, Physician Chief Complaint: Pt is considering foot amputation - he is anxious about it has some pain in foot coughing at times No SOB - Current Medication List Current Medications: Active Medications Acetaminophen (Tylenol -) 650 mg PO Q6H PRN PRN Reason: FEVER OR PAIN Aspirin (Asa -) 81 mg PO DAILY [facility] Last Admin: 11/09/16 10:17 Dose: 81 mg Atorvastatin Calcium (Lipitor -) 20 mg PO HS [facility] Last Admin: 11/08/16 22:33 Dose: 20 mg Enoxaparin Sodium (Lovenox -) 30 mg SQ DAILY [facility] Last Admin: 11/09/16 10:16 Dose: 30 mg Glipizide (Glucotrol -) 10 mg PO BIDI [facility] Last Admin: 11/09/16 06:33 Dose: 10 mg Piperacillin Sod/Tazobactam Sod (Zosyn 3.375gm Ivpb (Pre-Docked)) 50 mls @ 100 mls/hr IVPB Q8H-IV [facility] PRN Reason: Protocol Last Admin: 11/09/16 10:17 Dose: 100 mls/hr Vancomycin HCl 1,500 mg/ (Sodium Chloride) 500 mls @ 250 mls/hr IVPB DAILY@ 1100 [facility] PRN Reason: Protocol Stop: 11/11/16 12:59 Last Admin: 11/08/16 13:48 Dose: 250 mls/hr Insulin Aspart (Novolog Vial Sliding Scale -) 1 vial SQ ACHS [facility] PRN Reason: Protocol Last Admin: 11/09/16 06:33 Dose: Not Given Insulin Detemir (Levemir Vial) 30 units SQ [facility] Last Admin: 11/08/16 22:32 Dose: 30 units - Objective Vital Signs: Vital Signs Temperature 97.7 F 11/09/16 08:32 Pulse Rate 75 11/09/16 08:32 Respiratory Rate 18 11/09/16 08:32 Blood Pressure 134/68 11/09/16 08:32 O2 Sat by Pulse Oximetry (%) 97 11/08/16 21:00 Constitutional: Yes: No Distress Cardiovascular: Yes: Regular Rate and Rhythm Respiratory: Yes: Diminished Gastrointestinal: Yes: Normal Bowel Sounds, Soft, Abdomen, Obese. 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 Code(s): F06.4 - ANXIETY DISORDER DUE TO KNOWN PHYSIOLOGICAL CONDITION (2) Chronic osteomyelitis Code(s): M86.60 - OTHER CHRONIC OSTEOMYELITIS, UNSPECIFIED SITE (3) Chronic renal insufficiency, stage III (moderate) Code(s): N18.3 - CHRONIC KIDNEY DISEASE, STAGE 3 (MODERATE) (4) Diabetes 1.5, managed as type 1 Code(s): E13.9 - OTHER SPECIFIED DIABETES MELLITUS WITHOUT COMPLICATIONS (5) Anemia Code(s): D64.9 - ANEMIA, UNSPECIFIED Qualifiers: Anemia type: other cause (6) CAD (coronary artery disease) Code(s): I25.10 - ATHSCL HEART DISEASE OF [place] CORONARY ARTERY W/O ANG PCTRS (7) Diabetes Code(s): E11.9 - TYPE 2 DIABETES MELLITUS WITHOUT COMPLICATIONS Qualifiers: Diabetes mellitus type: type 1 Diabetes mellitus complication status: with circulatory complication Diabetes mellitus complication detail: with peripheral angiopathy without gangrene Qualified Code(s): E10.51 - Type 1 diabetes mellitus with diabetic peripheral angiopathy without gangrene Assessment/Plan PLAN IV antibiotics per ID Pt is anxious about amputation but is agreeable to it-- he wants it done in December though Will speak with DR Tejada about this , need to consider the urgency in amputation pain control monitor sugars, maintain good glucose control check labs
[2016-11-09] MEDS: VANCOMYCIN 1,500 MG in SODIUM CHLORIDE 500 ML IVPB SCH (11:04)
--- NOTE | 2016-11-09 14:04 | PN ---
Progress Note (short form) - Note Progress Note: ID Vancomycin and Zosyn Selected Entries 11/09/16 08:32 Temperature 97.7 F Pulse Rate 75 Respiratory 18 Rate Blood Pressure 134/68 Microbiology 11/07/16 16:15 Nares - Mrsa Screen - Right MRSA Screen - Final NO MRSA ISOLATED 11/07/16 16:15 Nares - Mrsa Screen - Left MRSA Screen - Final NO MRSA ISOLATED 11/04/16 19:12 Foot - Left Heel Gram Stain - Final 11/07/16 16:15 Rectal Swab VRE Culture - Preliminary Pending Organism 11/04/16 19:12 Foot - Left Heel Wound Culture - Preliminary Enterobacter [place] Diphtheroid/Corynebacterium Enterobacter [place]ae#2 Staphylococcus Species Gram Negative [facility] Laboratory Tests 11/08/16 11/09/16 11/09/16 10:32 06:00 06:00 WBC 6.0 Hgb 9.1 L Hct 29.0 L Plt Count 434 Creatinine 1.2 Vancomycin Trough 12.194 H D Assessment Chronic osteomyelitis Plan Contact isolation Antibiotics Amputuation needed EDNACoral Smith MD Problem List - Problems (1) Chronic osteomyelitis Code(s): M86.60 - OTHER CHRONIC OSTEOMYELITIS, UNSPECIFIED SITE (2) Diabetes 1.5, managed as type 1 Code(s): E13.9 - OTHER SPECIFIED DIABETES MELLITUS WITHOUT COMPLICATIONS
[2016-11-09] MEDS ORDERED: INSULIN (NOVOLOG) ASPART 100 UNITS/ML 10ML VIAL ONE ×2 (16:50→17:19)
[2016-11-09] MEDS: INSULIN DETEMIR 100 UNITS/ML MDV SQ SCH (22:07)
[2016-11-09] MEDS: ATORVASTATIN CA 20 MG TABLET (FP) PO SCH (22:07)
[2016-11-10] MEDS: PIPERACILLIN/TAZOB 3.375 GM 50 ML IVPB SCH ×3 (01:05→17:09)
[2016-11-10] MEDS: glipiZIDE 10 MG TABLET (FP) PO SCH ×2 (06:16→17:10)
[2016-11-10] MEDS: INSULIN SLIDING SCALE (NOVOLOG) 1 VIAL SQ SCH ×4 (06:16→21:58)
[2016-11-10] MEDS ORDERED: INSULIN (NOVOLOG) ASPART 100 UNITS/ML 10ML VIAL ONE ×3 (06:34→20:28)
--- NOTE | 2016-11-10 08:32 | PN ---
Progress Note (short form) - Note Progress Note: SUBJECTIVE: Patient seen and examined. Chart reviewed. Comfortable. Patient is scheduled for BKA on Sunday morning. Denies chest pain or shortness of breath. OBJECTIVE: Vital Signs - 8 hr 11/10/16 05:49 Temperature 98.4 F Pulse Rate 73 Respiratory 18 Rate Blood Pressure 104/59 Intake & Output 11/09/16 11/10/16 11/10/16 23:59 07:59 15:59 Intake Total 120 Balance 120 Intake: Oral 120 Other: Voiding Method Toilet Toilet # Unmeasured Voids Void 2 Bowel Movement No Active Medications Acetaminophen (Tylenol -) 650 mg PO Q6H PRN PRN Reason: FEVER OR PAIN Aspirin (Asa -) 81 mg PO DAILY [facility] Last Admin: 11/09/16 10:17 Dose: 81 mg Atorvastatin Calcium (Lipitor -) 20 mg PO HS [facility] Last Admin: 11/09/16 22:07 Dose: 20 mg Enoxaparin Sodium (Lovenox -) 30 mg SQ DAILY [facility] Last Admin: 11/09/16 10:16 Dose: 30 mg Glipizide (Glucotrol -) 10 mg PO BIDI [facility] Last Admin: 11/10/16 06:16 Dose: 10 mg Piperacillin Sod/Tazobactam Sod (Zosyn 3.375gm Ivpb (Pre-Docked)) 50 mls @ 100 mls/hr IVPB Q8H-IV [facility] PRN Reason: Protocol Last Admin: 11/10/16 01:05 Dose: 100 mls/hr Vancomycin HCl 1,500 mg/ (Sodium Chloride) 500 mls @ 250 mls/hr IVPB DAILY@ 1100 [facility] PRN Reason: Protocol Stop: 11/11/16 12:59 Last Admin: 11/09/16 11:04 Dose: 250 mls/hr Insulin Aspart (Novolog Vial Sliding Scale -) 1 vial SQ ACHS [facility] PRN Reason: Protocol Last Admin: 11/10/16 06:16 Dose: Not Given Insulin Detemir (Levemir Vial) 30 units SQ HS [facility] Last Admin: 11/09/16 22:07 Dose: 30 units CBC, BMP 11/09/16 06:00 11/09/16 06:00 Laboratory Results - last 24 hr 11/05/16 11/09/16 11/09/16 08:59 10:57 16:55 POC Glucometer 199 173 Blood Type O POSITIVE Antibody Screen Negative Crossmatch See Detail Spec Expiration Date 11/09/16 11/10/16 22:06 06:16 POC Glucometer 198 91 Blood Type Antibody Screen Crossmatch Spec Expiration Date Microbiology 11/04/16 19:12 Gram Stain - Final Foot - Left Heel Wound Culture - Preliminary Enterobacter [place] Diphtheroid/Corynebacterium Enterobacter [place]ae#2 Staphylococcus Species Gram Negative Chirag 11/07/16 16:15 VRE Culture - Preliminary Rectal Swab Pending Organism 11/07/16 16:15 MRSA Screen - Final Nares - Mrsa Screen - Left NO MRSA ISOLATED 11/07/16 16:15 MRSA Screen - Final Nares - Mrsa Screen - Right NO MRSA ISOLATED PHYSICAL EXAMINATION: Constitutional: Yes: No Distress Cardiovascular: Yes: Regular Rate and Rhythm Respiratory: Yes: Diminished at bases. Gastrointestinal: Yes: Normal Bowel Sounds, Soft, Abdomen, Obese. No: Distention, Tenderness Extremities: Yes: Other (left foot dressing in place) Edema: Yes Edema: LLE: 1+ ASSESSMENT & PLAN: - IV antibiotics. - Medications reviewed. - Monitor blood sugars. - Patient is medically stable for the proposed procedure. - Will follow. Documentation prepared by Alicja Brambila, acting as a medical investigator for Nas Platt MD. <Alicja Brambila - Last Filed: 11/10/16 10:17> Problem List - Problems (1) Chronic osteomyelitis Code(s): M86.60 - OTHER CHRONIC OSTEOMYELITIS, UNSPECIFIED SITE (2) Diabetes 1.5, managed as type 1 Code(s): E13.9 - OTHER SPECIFIED DIABETES MELLITUS WITHOUT COMPLICATIONS (3) Abnormal EKG Code(s): R94.31 - ABNORMAL ELECTROCARDIOGRAM [ECG] [EKG] (4) Anemia Code(s): D64.9 - ANEMIA, UNSPECIFIED Qualifiers: Anemia type: other cause (5) CAD (coronary artery disease) Code(s): I25.10 - ATHSCL HEART DISEASE OF [place] CORONARY ARTERY W/O ANG PCTRS (6) Chronic renal insufficiency, stage III (moderate) Code(s): N18.3 - CHRONIC KIDNEY DISEASE, STAGE 3 (MODERATE) <Nas Platt - Last Filed: 11/10/16 08:31>
--- NOTE | 2016-11-10 08:42 | PN ---
Progress Note (short form) - Note Progress Note: Patient has now agreed to BKA but wants to wait until next week. We have compromised to do surgery Sunday. Hopefully he will not change his mind. Preop for Sunday. Hold Lovenox Sunday AM. Problem List - Problems (1) Chronic osteomyelitis Code(s): M86.60 - OTHER CHRONIC OSTEOMYELITIS, UNSPECIFIED SITE (2) Diabetes Code(s): E11.9 - TYPE 2 DIABETES MELLITUS WITHOUT COMPLICATIONS Qualifiers: Diabetes mellitus type: type 1 Diabetes mellitus complication status: with circulatory complication Diabetes mellitus complication detail: with peripheral angiopathy without gangrene Qualified Code(s): E10.51 - Type 1 diabetes mellitus with diabetic peripheral angiopathy without gangrene
[2016-11-10] MEDS: ENOXAPARIN NA (PORCINE) 30 MG/0.3 ML DISP.SYRIN SQ SCH (10:44)
[2016-11-10] MEDS: VANCOMYCIN 1,500 MG in SODIUM CHLORIDE 500 ML IVPB SCH (10:45)
--- NOTE | 2016-11-10 11:11 | PN ---
Progress Note, Physician History of Present Illness: Awake, alert No acute distress No foot pain No c/o fever/ chills Agrees to BKA - Current Medication List Current Medications: Active Medications Acetaminophen (Tylenol -) 650 mg PO Q6H PRN PRN Reason: FEVER OR PAIN Aspirin (Asa -) 81 mg PO DAILY [facility] Last Admin: 11/09/16 10:17 Dose: 81 mg Atorvastatin Calcium (Lipitor -) 20 mg PO HS [facility] Last Admin: 11/09/16 22:07 Dose: 20 mg Enoxaparin Sodium (Lovenox -) 30 mg SQ DAILY [facility] Last Admin: 11/10/16 10:44 Dose: 30 mg Glipizide (Glucotrol -) 10 mg PO BIDI [facility] Last Admin: 11/10/16 06:16 Dose: 10 mg Piperacillin Sod/Tazobactam Sod (Zosyn 3.375gm Ivpb (Pre-Docked)) 50 mls @ 100 mls/hr IVPB Q8H-IV [facility] PRN Reason: Protocol Last Admin: 11/10/16 10:42 Dose: 100 mls/hr Vancomycin HCl 1,500 mg/ (Sodium Chloride) 500 mls @ 250 mls/hr IVPB DAILY@ 1100 [facility] PRN Reason: Protocol Stop: 11/11/16 12:59 Last Admin: 11/10/16 10:45 Dose: 250 mls/hr Insulin Aspart (Novolog Vial Sliding Scale -) 1 vial SQ ACHS [facility] PRN Reason: Protocol Last Admin: 11/10/16 06:16 Dose: Not Given Insulin Detemir (Levemir Vial) 30 units SQ [facility] Last Admin: 11/09/16 22:07 Dose: 30 units - Objective Vital Signs: Vital Signs Temperature 98.2 F 11/10/16 10:35 Pulse Rate 82 11/10/16 10:35 Respiratory Rate 18 11/10/16 10:35 Blood Pressure 127/68 11/10/16 10:35 O2 Sat by Pulse Oximetry (%) 99 11/09/16 21:00 Constitutional: Yes: No Distress Eyes: Yes: Conjunctiva Clear Cardiovascular: Yes: Regular Rate and Rhythm, S1, S2 Respiratory: Yes: CTA Bilaterally Gastrointestinal: Yes: Normal Bowel Sounds, Soft. No: Tenderness Extremities: Yes: Other (Heel ulcer with granulation tissue No drainage or foul odor) Labs: CBC, BMP 11/09/16 06:00 11/09/16 06:00 Assessment/Plan Non healing foot ulcer Chronic osteomyelitis of foot Diabetes mellitus Agreeable to BKA Continue empiric zosyn/ vancomycin
--- NOTE | 2016-11-10 15:47 | PN ---
Progress Note (short form) - Note Progress Note: The patient was seen today for a psychotherapuetic session. He was in good spirits but exhibited evidence of anxiety related to his medical condition and upcoming amputation of his left foot. He preferred using the session for supportive intervention by ventilating his feelings. In addition, we explored self help techniques such as acupressure and relaxation exercises. He was advised to breath through his nose to a count of 5 and exhale afterwards to a count of , 5 ,6 or 7 depending on his comfort level. In addition, he was recommended to use guided imagery of his body healing or imagery per his feedback of him engaging in activities he en joys. 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
[2016-11-10] MEDS ORDERED: glipiZIDE 5 MG TABLET (FP) ONE (17:03)
[2016-11-10] MEDS: ATORVASTATIN CA 20 MG TABLET (FP) PO SCH (22:02)
[2016-11-10] MEDS: INSULIN DETEMIR 100 UNITS/ML MDV SQ SCH (22:03)
[2016-11-11] MEDS: PIPERACILLIN/TAZOB 3.375 GM 50 ML IVPB SCH ×3 (01:16→17:25)
[2016-11-11] MEDS ORDERED: glipiZIDE 5 MG TABLET (FP) ONE (05:33)
[2016-11-11] MEDS: glipiZIDE 10 MG TABLET (FP) PO SCH ×2 (06:09→17:24)
[2016-11-11] MEDS: INSULIN SLIDING SCALE (NOVOLOG) 1 VIAL SQ SCH ×4 (06:10→22:40)
[2016-11-11] MEDS: ENOXAPARIN NA (PORCINE) 30 MG/0.3 ML DISP.SYRIN SQ SCH (11:48)
[2016-11-11] MEDS: VANCOMYCIN 1,500 MG in SODIUM CHLORIDE 500 ML IVPB SCH (11:49)
--- NOTE | 2016-11-11 11:50 | PN ---
Progress Note (short form) - Note Progress Note: patient seen and examined today Comfortable no complains Vital Signs Temp 98.9 F 11/07/16 06:00 Pulse 77 11/07/16 06:00 Resp 20 11/07/16 06:00 BP 109/63 11/07/16 06:00 Pulse Ox 96 11/05/16 19:00 Intake & Output 11/06/16 11/06/16 11/07/16 11:59 23:59 11:59 Intake Total 170 880 Balance 170 880 Intake: IVPB 50 50 Oral 120 480 Packed Cells 350 Other: Voiding Method Toilet Toilet Toilet # Unmeasured Voids Void 1 1 Active Medications Acetaminophen (Tylenol -) 650 mg PO Q6H PRN PRN Reason: FEVER OR PAIN Aspirin (Asa -) 81 mg PO DAILY [facility] Last Admin: 11/06/16 10:55 Dose: 81 mg Atorvastatin Calcium (Lipitor -) 20 mg PO HS [facility] Last Admin: 11/06/16 23:13 Dose: 20 mg Enoxaparin Sodium (Lovenox -) 30 mg SQ DAILY [facility] Last Admin: 11/06/16 10:56 Dose: 30 mg Glipizide (Glucotrol -) 10 mg PO BIDI [facility] Last Admin: 11/07/16 06:00 Dose: 10 mg Vancomycin HCl 1,500 mg/ (Dextrose) 500 mls @ 250 mls/hr IVPB DAILY [facility] PRN Reason: Protocol Last Admin: 11/06/16 09:32 Dose: 250 mls/hr Piperacillin Sod/Tazobactam Sod (Zosyn 3.375gm Ivpb (Pre-Docked)) 50 mls @ 100 mls/hr IVPB Q8H-IV [facility] PRN Reason: Protocol Last Admin: 11/07/16 01:47 Dose: 100 mls/hr Insulin Aspart (Novolog Vial Sliding Scale -) 1 vial SQ ACHS [facility] PRN Reason: Protocol Last Admin: 11/07/16 06:00 Dose: Not Given Insulin Detemir (Levemir Vial) 30 units SQ HS [facility] Last Admin: 11/06/16 23:13 Dose: 30 units Physical Exam Constitutional: Yes: No Distress, Calm Eyes: Yes: Conjunctiva Clear Neck: Yes: Supple Cardiovascular: Yes: Regular Rate and Rhythm Respiratory: Yes: CTA Bilaterally Gastrointestinal: Yes: Normal Bowel Sounds, Soft Edema: No Wound/Incision: Yes: Other (right heel- chronic wound) Psychiatric: Yes: Alert Assessment and Plan Clinically stable. Continue abx. Follow-up labs I discussed with Dr. Hammer again today scheduled for sunday pt in agreement will follow Problem List - Problems (1) Chronic osteomyelitis Code(s): M86.60 - OTHER CHRONIC OSTEOMYELITIS, UNSPECIFIED SITE (2) Diabetes 1.5, managed as type 1 Code(s): E13.9 - OTHER SPECIFIED DIABETES MELLITUS WITHOUT COMPLICATIONS (3) Abnormal EKG Code(s): R94.31 - ABNORMAL ELECTROCARDIOGRAM [ECG] [EKG] (4) Anemia Code(s): D64.9 - ANEMIA, UNSPECIFIED Qualifiers: Anemia type: other cause (5) CAD (coronary artery disease) Code(s): I25.10 - ATHSCL HEART DISEASE OF [place] CORONARY ARTERY W/O ANG PCTRS (6) Chronic renal insufficiency, stage III (moderate) Code(s): N18.3 - CHRONIC KIDNEY DISEASE, STAGE 3 (MODERATE)
[2016-11-11] MEDS ORDERED: INSULIN (NOVOLOG) ASPART 100 UNITS/ML 10ML VIAL ONE (21:59)
[2016-11-11] MEDS: ATORVASTATIN CA 20 MG TABLET (FP) PO SCH (22:41)
[2016-11-11] MEDS: INSULIN DETEMIR 100 UNITS/ML MDV SQ SCH (22:42)
[2016-11-12] MEDS: PIPERACILLIN/TAZOB 3.375 GM 50 ML IVPB SCH ×2 (01:23→10:46)
[2016-11-12] MEDS ORDERED: glipiZIDE 5 MG TABLET (FP) ONE ×2 (05:50→16:47)
[2016-11-12] MEDS: INSULIN SLIDING SCALE (NOVOLOG) 1 VIAL SQ SCH ×4 (06:13→22:05)
[2016-11-12] MEDS: glipiZIDE 10 MG TABLET (FP) PO SCH ×2 (06:13→17:05)
[2016-11-12] MEDS ORDERED: INSULIN (NOVOLOG) ASPART 100 UNITS/ML 10ML VIAL ONE (06:40)
[2016-11-12 07:16] LABS: BASOPHIL 0.4 % (0-2.0); EOSINOPHIL 4.1 % (0-4.5); MCH 21.6 pg (25.7-33.7); MCHC 31.6 g/dl (32.0-35.9); MEAN CELL VOLUME 68.4 fl (80-96); MEAN PLT VOLUME 6.7 fl (7.5-11.1); PLATELET COUNT 429 K/MM3 (134-434); RDW 23.8 % (11.9-15.9); WHITE BLOOD COUNT 6.3 K/mm3 (4.0-10.0)
[2016-11-12 07:40] LABS: ALBUMIN 2.6 g/dl (3.4-5.0); BILIRUBIN,TOTAL 0.3 mg/dL (0.2-1.0); CALCIUM 8.1 mg/dL (8.5-10.1); COCKROFT - GAULT 136.3; CREATININE 1.3 mg/dL (0.7-1.3)
[2016-11-12 07:41] LABS: TOT PROT 7.1 g/dl (6.4-8.2)
--- NOTE | 2016-11-12 09:13 | SPA.PREOP ---
- PRE-OP NOTE Dx: left heel chronic wound/gangrene Planned Procedure: left BKA Surgeon: Dr. Tejada Last Vital Signs Temp Pulse Resp BP Pulse Ox 98.4 F 74 20 113/65 97 11/12/16 05:41 11/12/16 05:41 11/12/16 05:41 11/12/16 05:41 11/11/16 21:00 Lab Results WBC 6.3 K/mm3 (4.0-10.0) 11/12/16 06:00 RBC 4.42 M/mm3 (4.00-5.60) 11/12/16 06:00 Hgb 9.6 GM/dL (11.7-16.9) L 11/12/16 06:00 Hct 30.2 % (35.4-49) L 11/12/16 06:00 MCV 68.4 fl (80-96) L 11/12/16 06:00 MCHC 31.6 g/dl (32.0-35.9) L 11/12/16 06:00 RDW 23.8 % (11.9-15.9) H 11/12/16 06:00 Plt Count 429 K/MM3 (134-434) 11/12/16 06:00 Sodium 137 mmol/L (136-145) 11/12/16 06:00 Potassium 4.4 mmol/L (3.5-5.1) 11/12/16 06:00 Chloride 103 mmol/L (98-107) 11/12/16 06:00 Carbon Dioxide 26 mmol/L (21-32) 11/12/16 06:00 Anion Gap 8 (8-16) 11/12/16 06:00 BUN 27 mg/dL (7-18) H 11/12/16 06:00 Creatinine 1.3 mg/dL (0.7-1.3) 11/12/16 06:00 Random Glucose 92 mg/dL (74-106) D 11/12/16 06:00 Calcium 8.1 mg/dL (8.5-10.1) L 11/12/16 06:00 Blood Type O POSITIVE 11/05/16 08:59 Antibody Screen Negative 11/05/16 08:59 T&S 11/05 Laboratory Tests 11/11/16 11/12/16 22:38 06:12 POC Glucometer 158 105 - IMAGING Chest X-ray: Report Reviewed (11/04-no actue pathology) EKG: Report Reviewed (Sinus tach at 107, no changes whe compared to 07/2015) - ASSESSMENT/PLAN 1. Make NPO after midnight except po meds 2. T&S ordered/INR for the am 3. IVF after npo 4. Please medically clear the patient for surgery Visit type - Case Type Case Type: ED Admission - Emergency Emergency Visit: Yes ED Registration Date: 11/04/16 Care time: The patient presented to the Emergency Department on the above date and was hospitalized for further evaluation of their emergent condition. - New patient This patient is new to me today: No - Critical Care Critical Care patient: No
--- NOTE | 2016-11-12 10:05 | PN ---
Progress Note (short form) - Note Progress Note: Pt comfortable mood ok no complains denies cp/sob/ abd pain Vital Signs Temp 98.4 F 11/12/16 05:41 Pulse 74 11/12/16 05:41 Resp 20 11/12/16 05:41 BP 113/65 11/12/16 05:41 Pulse Ox 97 11/11/16 21:00 Intake & Output 11/11/16 11/11/16 11/12/16 11:59 23:59 11:59 Intake Total 350 450 50 Balance 350 450 50 Intake: IVPB 50 50 Oral 300 450 Other: Voiding Method Urinal Urinal Toilet # Unmeasured Voids Void 1 Bowel Movement No Yes Active Medications Acetaminophen (Tylenol -) 650 mg PO Q6H PRN PRN Reason: FEVER OR PAIN Aspirin (Asa -) 81 mg PO DAILY [facility] Last Admin: 11/09/16 10:17 Dose: 81 mg Atorvastatin Calcium (Lipitor -) 20 mg PO HS [facility] Last Admin: 11/11/16 22:41 Dose: 20 mg Glipizide (Glucotrol -) 10 mg PO BIDI [facility] Last Admin: 11/12/16 06:13 Dose: 10 mg Sodium Chloride (1/2 Normal Saline) 1,000 mls @ 75 mls/hr IV ASDIR [facility] Insulin Aspart (Novolog Vial Sliding Scale -) 1 vial SQ ACHS [facility] PRN Reason: Protocol Last Admin: 11/12/16 06:13 Dose: Not Given Insulin Detemir (Levemir Vial) 30 units SQ HS [facility] Last Admin: 11/11/16 22:42 Dose: 30 units CBC, BMP 11/12/16 06:00 11/12/16 06:00 Physical Exam Constitutional: Yes: No Distress, Calm Eyes: Yes: Conjunctiva Clear Neck: Yes: Supple Cardiovascular: Yes: Regular Rate and Rhythm Respiratory: Yes: CTA Bilaterally Gastrointestinal: Yes: Normal Bowel Sounds, Soft Edema: No Wound/Incision: Yes: Other (right heel- chronic wound) Psychiatric: Yes: Alert Assessment and Plan Clinically stable. Continue abx. scheduled for bka sunday pt in agreement will follow Medically stable for proposed procedure Lovonox held Problem List - Problems (1) Chronic osteomyelitis Code(s): M86.60 - OTHER CHRONIC OSTEOMYELITIS, UNSPECIFIED SITE (2) Diabetes 1.5, managed as type 1 Code(s): E13.9 - OTHER SPECIFIED DIABETES MELLITUS WITHOUT COMPLICATIONS (3) Abnormal EKG Code(s): R94.31 - ABNORMAL ELECTROCARDIOGRAM [ECG] [EKG] (4) Anemia Code(s): D64.9 - ANEMIA, UNSPECIFIED Qualifiers: Anemia type: other cause (5) CAD (coronary artery disease) Code(s): I25.10 - ATHSCL HEART DISEASE OF [place] CORONARY ARTERY W/O ANG PCTRS (6) Chronic renal insufficiency, stage III (moderate) Code(s): N18.3 - CHRONIC KIDNEY DISEASE, STAGE 3 (MODERATE)
[2016-11-12 10:24] LABS: ANISOCYTOSIS 3+; HYPOCHROMIA 2+; MICROCYTOSIS 1+; OVALOCYTES 1+
[2016-11-12] MEDS: ENOXAPARIN NA (PORCINE) 30 MG/0.3 ML DISP.SYRIN SQ SCH (10:46)
[2016-11-12] MEDS: VANCOMYCIN 1,500 MG in SODIUM CHLORIDE 500 ML IVPB SCH (12:25)
[2016-11-12] MEDS: PIPERACILLIN/TAZOB 3.375 GM/50 ML PRE-DOCKED IVPB SCH (17:12)
[2016-11-12] MEDS: INSULIN DETEMIR 100 UNITS/ML MDV SQ SCH (22:05)
[2016-11-12] MEDS: ATORVASTATIN CA 20 MG TABLET (FP) PO SCH (22:05)
[2016-11-13] MEDS ORDERED: SODIUM CHLORIDE 0.45% 1,000 ML IV SCH
[2016-11-13] MEDS: PIPERACILLIN/TAZOB 3.375 GM/50 ML PRE-DOCKED IVPB SCH ×3 (01:04→18:55)
[2016-11-13] MEDS: glipiZIDE 10 MG TABLET (FP) PO SCH (06:01)
[2016-11-13] MEDS: INSULIN SLIDING SCALE (NOVOLOG) 1 VIAL SQ SCH ×4 (06:01→21:43)
[2016-11-13 08:11] LABS: MCH 21.5 pg (25.7-33.7); MCHC 31.4 g/dl (32.0-35.9); MEAN CELL VOLUME 68.4 fl (80-96); MEAN PLT VOLUME 6.8 fl (7.5-11.1); PLATELET COUNT 397 K/MM3 (134-434); RDW 23.7 % (11.9-15.9); WHITE BLOOD COUNT 6.5 K/mm3 (4.0-10.0)
[2016-11-13 08:16] LABS: INR 1.25 (0.82-1.09); PROTHROMBIN TIME (PATIENT) 13.8 SEC (9.98-11.88)
[2016-11-13 08:28] LABS: CALCIUM 8.6 mg/dL (8.5-10.1)
[2016-11-13 08:29] LABS: COCKROFT - GAULT 136.3; CREATININE 1.3 mg/dL (0.7-1.3)
--- NOTE | 2016-11-13 09:29 | PN ---
Progress Note (short form) - Note Progress Note: Subjective Patient seen and examined. Comfortable. No complaints. Mood is stable. Currently NPO Objective Last Vital Signs Temp Pulse Resp BP Pulse Ox 98.2 F 82 18 131/75 99 11/13/16 06:00 11/13/16 06:00 11/13/16 06:00 11/13/16 06:00 11/12/16 21:00 CBC, BMP 11/13/16 06:50 11/13/16 06:50 Laboratory Results - last 24 hr 11/12/16 11/12/16 11/12/16 06:00 12:06 17:08 WBC RBC Hgb Hct MCV MCHC RDW Plt Count MPV Hypochromic-Microcytic 2+ Anisocytosis 3+ Microcytosis 1+ Ovalocytes 1+ INR Sodium Potassium Chloride Carbon Dioxide Anion Gap BUN Creatinine POC Glucometer 108 137 Random Glucose Calcium Blood Type Antibody Screen 11/12/16 11/13/16 11/13/16 21:08 05:59 06:50 WBC 6.5 RBC 4.61 Hgb 9.9 L Hct 31.5 L MCV 68.4 L MCHC 31.4 L RDW 23.7 H Plt Count 397 MPV 6.8 L Hypochromic-Microcytic Anisocytosis Microcytosis Ovalocytes INR Sodium Potassium Chloride Carbon Dioxide Anion Gap BUN Creatinine POC Glucometer 208 109 Random Glucose Calcium Blood Type Antibody Screen 11/13/16 11/13/16 11/13/16 06:50 06:50 06:50 WBC RBC Hgb Hct MCV MCHC RDW Plt Count MPV Hypochromic-Microcytic Anisocytosis Microcytosis Ovalocytes INR 1.25 H Sodium 139 Potassium 4.4 Chloride 105 Carbon Dioxide 23 Anion Gap 11 BUN 30 H Creatinine 1.3 POC Glucometer Random Glucose 88 Calcium 8.6 Blood Type O POSITIVE Antibody Screen Negative Physical Exam Constitutional: Yes: No Distress, Calm Eyes: Yes: Conjunctiva Clear Neck: Yes: Supple Cardiovascular: Yes: Regular Rate and Rhythm Respiratory: Yes: CTA Bilaterally Gastrointestinal: Yes: Normal Bowel Sounds, Soft Edema: No Wound/Incision: Yes: Other (right heel- chronic wound) Psychiatric: Yes: Alert Assessment and Plan Clinically stable. Continue abx. scheduled for bka today will follow Medically stable for proposed procedure Lovenox held Will start on mild hydration with D5 D/c glipizide Monitor BG Discussed with nursing staff. Documentation prepared by Rina Bauer, acting as a director medical science for Nas Platt MD. <Rina Bauer - Last Filed: 11/13/16 09:50> Problem List - Problems (1) Chronic osteomyelitis Code(s): M86.60 - OTHER CHRONIC OSTEOMYELITIS, UNSPECIFIED SITE (2) Diabetes 1.5, managed as type 1 Code(s): E13.9 - OTHER SPECIFIED DIABETES MELLITUS WITHOUT COMPLICATIONS (3) Abnormal EKG Code(s): R94.31 - ABNORMAL ELECTROCARDIOGRAM [ECG] [EKG] (4) Anemia Code(s): D64.9 - ANEMIA, UNSPECIFIED Qualifiers: Anemia type: other cause (5) CAD (coronary artery disease) Code(s): I25.10 - ATHSCL HEART DISEASE OF [place] CORONARY ARTERY W/O ANG PCTRS (6) Chronic renal insufficiency, stage III (moderate) Code(s): N18.3 - CHRONIC KIDNEY DISEASE, STAGE 3 (MODERATE) <Nas Platt - Last Filed: 11/13/16 09:29>
[2016-11-13] MEDS ORDERED: DEXTROSE 5%-0.45% SALINE 1,000 ML IV SCH (09:30)
[2016-11-13] MEDS ORDERED: PT OWN MED DRAWER 7, Y5N ONE (11:17)
[2016-11-13] MEDS: VANCOMYCIN 1,500 MG in SODIUM CHLORIDE 500 ML IVPB SCH (11:24)
[2016-11-13] MEDS ORDERED: MIDAZOLAM HCL 2 MG/2 ML SINGLE DOSE VIAL ONE ×4 (15:17→18:24)
[2016-11-13] MEDS ORDERED: BUPIVACAINE HCL/PF 0.5% (5MG/ML) 10 ML VIAL ONE (17:07)
[2016-11-13] MEDS ORDERED: PROPOFOL 20 ML ONE ×2 (17:31→18:13)
[2016-11-13] MEDS ORDERED: ALTEPLASE IV ONE (18:10)
[2016-11-13] MEDS ORDERED: SODIUM CHLORIDE IV ONE (18:10)
[2016-11-13] MEDS ORDERED: ONDANSETRON 4 MG/2 ML VIAL IVPUSH PRN ×2 (18:47→19:20)
[2016-11-13] MEDS ORDERED: HYDROmorphone HCL CARPU-JECT 1 MG/1 ML DISP.SYRIN IVPUSH PRN (18:47)
[2016-11-13] MEDS ORDERED: oxyCODONE HCL 5 MG TABLET PO PRN (18:47)
--- NOTE | 2016-11-13 18:57 | SURG ---
Addendum entered and electronically signed by Mike Zelaya PA 11/13/16 19:03: Diagnosis: Chronic osteomyelitis left calcaneus Original Note: Surgery Psychometrician Note Psychometrician: Mike Zelaya PA-C Date of Service: 11/13/16 Diagnosis: left heel chronic wound/gangrene Procedure: Left lower extremity, below knee amputation I was present for the entirety of the operative procedure. For further detail, please refer to operative report. Visit type - Case Type Case Type: ED Admission - New patient This patient is new to me today: Yes Date on this admission: 11/13/16
--- NOTE | 2016-11-13 18:58 | OP ---
Operative Note - Note: Operative Date: 11/13/16 Pre-Operative Diagnosis: Chronic osteomyelitis left calcaneus Operation: Left below-knee amputation Findings: Viable muscle and skin Post-Operative Diagnosis: Same as Pre-op Surgeon: Nguyễn Tejada Master Ship: Mike Zelaya Anesthesiologist/CHILDCARE WORKER: Uma Cesar Anesthesia: Spinal Specimens Removed: Left lower leg Estimated Blood Loss (mls): 600
[2016-11-13] MEDS ORDERED: LACTATED RINGERS SOLUTION 1,000 ML IV SCH ×2 (19:00→19:20)
[2016-11-13] MEDS: DEXTROSE 5%-0.45% SALINE 1,000 ML IV SCH (20:30)
[2016-11-13] MEDS: INSULIN DETEMIR 100 UNITS/ML MDV SQ SCH (21:42)
[2016-11-13] MEDS: ATORVASTATIN CA 20 MG TABLET (FP) PO SCH (21:43)
[2016-11-13] MEDS: HYDROmorphone HCL CARPU-JECT 1 MG/1 ML DISP.SYRIN IVPB PRN (21:44)
[2016-11-13] MEDS: oxyCODONE HCL 5 MG TABLET PO PRN (23:48)
[2016-11-14] MEDS: PIPERACILLIN/TAZOB 3.375 GM/50 ML PRE-DOCKED IVPB SCH ×3 (01:22→17:04)
[2016-11-14] MEDS: DEXTROSE 5%-0.45% SALINE 1,000 ML IV SCH (04:11)
[2016-11-14] MEDS: HYDROmorphone HCL CARPU-JECT 2 MG/1 ML DISP.SYRIN IVPB PRN ×4 (04:14→22:13)
[2016-11-14] MEDS: INSULIN SLIDING SCALE (NOVOLOG) 1 VIAL SQ SCH ×4 (06:29→22:11)
[2016-11-14] MEDS ORDERED: INSULIN (NOVOLOG) ASPART 100 UNITS/ML 10ML VIAL ONE ×3 (06:53→21:13)
[2016-11-14 07:33] LABS: MCH 21.2 pg (25.7-33.7); MCHC 31.1 g/dl (32.0-35.9); MEAN CELL VOLUME 68.3 fl (80-96); MEAN PLT VOLUME 7.1 fl (7.5-11.1); PLATELET COUNT 329 K/MM3 (134-434); RDW 23.6 % (11.9-15.9); WHITE BLOOD COUNT 10.7 K/mm3 (4.0-10.0)
[2016-11-14 08:05] LABS: CALCIUM 8.5 mg/dL (8.5-10.1); COCKROFT - GAULT 147.6; CREATININE 1.2 mg/dL (0.7-1.3)
--- NOTE | 2016-11-14 08:07 | PN ---
Progress Note (short form) - Note Progress Note: Post op day#1.S/P Left BKA under spinal anesthesia uneventful.Patient stable.No any anesthesia related problem.Patient DC from the anesthesia care.
--- NOTE | 2016-11-14 08:27 | PN ---
Progress Note (short form) - Note Progress Note: POD 1 C/o pain VSS Dressing dry Hgb 8.7 Stable OOB Physical therapy Dressing change POD 3 Problem List - Problems (1) Chronic osteomyelitis Code(s): M86.60 - OTHER CHRONIC OSTEOMYELITIS, UNSPECIFIED SITE (2) Diabetes Code(s): E11.9 - TYPE 2 DIABETES MELLITUS WITHOUT COMPLICATIONS Qualifiers: Diabetes mellitus type: type 1 Diabetes mellitus complication status: with circulatory complication Diabetes mellitus complication detail: with peripheral angiopathy without gangrene Qualified Code(s): E10.51 - Type 1 diabetes mellitus with diabetic peripheral angiopathy without gangrene
--- NOTE | 2016-11-14 08:51 | SPEC ---
DATE OF OPERATION: 11/13/2016 PROCEDURE: Below-knee amputation. SURGEON: Nguyễn Tejada MD AUTOMATIC SEAMER: AMY Mcpherson PREOPERATIVE DIAGNOSIS: Chronic osteomyelitis of the left calcaneus. POSTOPERATIVE DIAGNOSIS: Chronic osteomyelitis of the left calcaneus. ANESTHESIA: Spinal. ANESTHESIOLOGIST: Uma Cesar MD OPERATIVE FINDINGS: The muscle, skin, and bone at the level of amputation all appeared viable. There was no evidence of infection. OPERATIVE PROCEDURE: The leg was prepped with Betadine solution. Skin incision was made approximately 4 fingerbreadths below the tibial ridge in a short anterior long posterior configuration. Subcutaneous tissues and muscle fibers were divided with cautery. The saphenous vein was ligated between ties of Vicryl. Incision was carried in the muscle compartments which were divided with cautery. Each tibial neurovascular bundle was clamped and ligated with 2-0 silk ties. The sural nerve was ligated high with 3-0 Vicryl. Remaining soft tissue attachments were divided. Periosteum of the tibia was then elevated approximately 2 cm above the level of the skin incision. The bone was transected with an oscillating saw. The fibula was transected approximately 2 cm more proximally with a bone cutter. Remaining soft tissue attachments of the leg were severed and the specimen removed. The stump was irrigated with saline. Bleeding was controlled with cautery and suture ligatures of 3-0 Vicryl. The anterior edge of the tibia was then beveled with the oscillating saw and the end of the bone smooth with a rasp. Bone wax was applied. The wound was then closed with interrupted sutures of 2-0 Vicryl on the muscle fascia and skin clips. Sterile dressing consistent of Xeroform gauze, gauze fluffs, combine, Kerlix and Coban were applied and the leg was placed into the knee immobilizer. The patient was then transported to the emergency room. Caprice [id number]
[2016-11-14] MEDS: VANCOMYCIN 1,500 MG in SODIUM CHLORIDE 500 ML IVPB SCH (11:32)
--- NOTE | 2016-11-14 11:41 | PN ---
Progress Note, Physician History of Present Illness: S/P BKA POD #1 No c/o foot pain No fever/ chills - Current Medication List Current Medications: Active Medications Acetaminophen (Tylenol -) 650 mg PO Q6H PRN PRN Reason: FEVER OR PAIN Aspirin (Asa -) 81 mg PO DAILY [facility] Atorvastatin Calcium (Lipitor -) 20 mg PO HS [facility] Last Admin: 11/13/16 21:43 Dose: 20 mg Hydromorphone HCl (Dilaudid Injection -) 1 mg IVPB Q3H PRN PRN Reason: PAIN LEVEL 1-5 Last Admin: 11/13/16 21:44 Dose: 1 mg Hydromorphone HCl (Dilaudid Injection -) 2 mg IVPB Q3H PRN PRN Reason: PAIN LEVEL 6-10 Last Admin: 11/14/16 09:44 Dose: 2 mg Vancomycin HCl 1,500 mg/ (Sodium Chloride) 500 mls @ 250 mls/hr IVPB DAILY [facility] PRN Reason: Protocol Last Admin: 11/14/16 11:32 Dose: 250 mls/hr Insulin Aspart (Novolog Vial Sliding Scale -) 1 vial SQ ACHS [facility] PRN Reason: Protocol Last Admin: 11/14/16 06:29 Dose: 5 units Insulin Detemir (Levemir Vial) 30 units SQ HS [facility] Last Admin: 11/13/16 21:42 Dose: Not Given Oxycodone HCl (Roxicodone -) 10 mg PO Q4H PRN PRN Reason: SEVERE PAIN Stop: 11/14/16 18:46 Last Admin: 11/13/16 23:48 Dose: 10 mg Piperacillin Sod/Tazobactam Sod (Zosyn 3.375gm Ivpb (Pre-Docked)) 3.375 gm IVPB Q8H-IV [facility] PRN Reason: Protocol Last Admin: 11/14/16 09:45 Dose: 3.375 gm - Objective Vital Signs: Vital Signs Temperature 98.6 F 11/14/16 05:43 Pulse Rate 98 H 11/14/16 05:43 Respiratory Rate 18 11/14/16 05:43 Blood Pressure 120/67 11/14/16 05:43 O2 Sat by Pulse Oximetry (%) 100 11/13/16 21:30 Constitutional: Yes: No Distress Eyes: Yes: Conjunctiva Clear Cardiovascular: Yes: Regular Rate and Rhythm, S1, S2 Respiratory: Yes: CTA Bilaterally Gastrointestinal: Yes: Normal Bowel Sounds, Soft. No: Tenderness Extremities: Yes: Other (post op dressing in place) Labs: CBC, BMP 11/14/16 06:00 11/14/16 06:00 INR, PTT INR 1.25 (0.82-1.09) H 11/13/16 06:50 Assessment/Plan Non healing foot ulcer S/P BKA POD #1 Chronic osteomyelitis of foot Diabetes mellitus Continue empiric zosyn/ vancomycin x 24hr
--- NOTE | 2016-11-14 12:16 | PN ---
Progress Note, Physician Chief Complaint: s/p BKA has phantom limb Feels ok has pain but is better with pain meds - Current Medication List Current Medications: Active Medications Acetaminophen (Tylenol -) 650 mg PO Q6H PRN PRN Reason: FEVER OR PAIN Aspirin (Asa -) 81 mg PO DAILY [facility] Atorvastatin Calcium (Lipitor -) 20 mg PO HS [facility] Last Admin: 11/13/16 21:43 Dose: 20 mg Hydromorphone HCl (Dilaudid Injection -) 1 mg IVPB Q3H PRN PRN Reason: PAIN LEVEL 1-5 Last Admin: 11/13/16 21:44 Dose: 1 mg Hydromorphone HCl (Dilaudid Injection -) 2 mg IVPB Q3H PRN PRN Reason: PAIN LEVEL 6-10 Last Admin: 11/14/16 09:44 Dose: 2 mg Vancomycin HCl 1,500 mg/ (Sodium Chloride) 500 mls @ 250 mls/hr IVPB DAILY [facility] PRN Reason: Protocol Last Admin: 11/14/16 11:32 Dose: 250 mls/hr Insulin Aspart (Novolog Vial Sliding Scale -) 1 vial SQ ACHS [facility] PRN Reason: Protocol Last Admin: 11/14/16 06:29 Dose: 5 units Insulin Detemir (Levemir Vial) [address] [facility] Last Admin: 11/13/16 21:42 Dose: Not Given Oxycodone HCl (Roxicodone -) 10 mg PO Q4H PRN PRN Reason: SEVERE PAIN Stop: 11/14/16 18:46 Last Admin: 11/13/16 23:48 Dose: 10 mg Piperacillin Sod/Tazobactam Sod (Zosyn 3.375gm Ivpb (Pre-Docked)) 3.375 gm IVPB Q8H-IV [facility] PRN Reason: Protocol Last Admin: 11/14/16 09:45 Dose: 3.375 gm - Objective Vital Signs: Vital Signs Temperature 98.6 F 11/14/16 05:43 Pulse Rate 98 H 11/14/16 05:43 Respiratory Rate 18 11/14/16 05:43 Blood Pressure 120/67 11/14/16 05:43 O2 Sat by Pulse Oximetry (%) 100 11/13/16 21:30 Constitutional: Yes: No Distress Cardiovascular: Yes: Regular Rate and Rhythm Respiratory: Yes: CTA Bilaterally Gastrointestinal: Yes: Normal Bowel Sounds, Soft, Abdomen, Obese. 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 Code(s): F06.4 - ANXIETY DISORDER DUE TO KNOWN PHYSIOLOGICAL CONDITION (2) Chronic osteomyelitis Code(s): M86.60 - OTHER CHRONIC OSTEOMYELITIS, UNSPECIFIED SITE (3) Chronic renal insufficiency, stage III (moderate) Code(s): N18.3 - CHRONIC KIDNEY DISEASE, STAGE 3 (MODERATE) (4) Diabetes 1.5, managed as type 1 Code(s): E13.9 - OTHER SPECIFIED DIABETES MELLITUS WITHOUT COMPLICATIONS (5) Anemia Code(s): D64.9 - ANEMIA, UNSPECIFIED Qualifiers: Anemia type: other cause (6) CAD (coronary artery disease) Code(s): I25.10 - ATHSCL HEART DISEASE OF [place] CORONARY ARTERY W/O ANG PCTRS (7) Diabetes Code(s): E11.9 - TYPE 2 DIABETES MELLITUS WITHOUT COMPLICATIONS Qualifiers: Diabetes mellitus type: type 1 Diabetes mellitus complication status: with circulatory complication Diabetes mellitus complication detail: with peripheral angiopathy without gangrene Qualified Code(s): E10.51 - Type 1 diabetes mellitus with diabetic peripheral angiopathy without gangrene Assessment/Plan PLAN IV antibiotics per ID pain control incentive spirometry labs good DVT prophylaxis- Lovenox
[2016-11-14] MEDS: oxyCODONE HCL 5 MG TABLET PO PRN (14:03)
[2016-11-14] MEDS: ATORVASTATIN CA 20 MG TABLET (FP) PO SCH (22:10)
[2016-11-14] MEDS: INSULIN DETEMIR 100 UNITS/ML MDV SQ SCH (22:12)
[2016-11-15] MEDS: PIPERACILLIN/TAZOB 3.375 GM/50 ML PRE-DOCKED IVPB SCH ×3 (01:09→18:15)
[2016-11-15] MEDS ORDERED: glipiZIDE 5 MG TABLET (FP) ONE ×2 (05:09→17:41)
[2016-11-15] MEDS: glipiZIDE 10 MG TABLET (FP) PO SCH ×2 (06:01→16:30)
[2016-11-15] MEDS: HYDROmorphone HCL CARPU-JECT 2 MG/1 ML DISP.SYRIN IVPB PRN ×2 (06:02→16:30)
[2016-11-15] MEDS ORDERED: INSULIN (NOVOLOG) ASPART 100 UNITS/ML 10ML VIAL ONE ×2 (06:22→19:46)
[2016-11-15] MEDS: INSULIN SLIDING SCALE (NOVOLOG) 1 VIAL SQ SCH ×4 (06:24→22:03)
[2016-11-15 07:40] LABS: MCH 21.4 pg (25.7-33.7); MCHC 31.3 g/dl (32.0-35.9); MEAN CELL VOLUME 68.4 fl (80-96); MEAN PLT VOLUME 7.3 fl (7.5-11.1); PLATELET COUNT 294 K/MM3 (134-434); RDW 23.9 % (11.9-15.9); WHITE BLOOD COUNT 7.1 K/mm3 (4.0-10.0)
[2016-11-15 08:28] LABS: ALBUMIN 2.5 g/dl (3.4-5.0); ALK PHOS 76 U/L (45-117); ANION GAP 12 (8-16); BILIRUBIN,TOTAL 0.3 mg/dL (0.2-1.0); CALCIUM 8.3 mg/dL (8.5-10.1); CO2 24 mmol/L (21-32); COCKROFT - GAULT 161.1; CREATININE 1.1 mg/dL (0.7-1.3); GLUCOSE,RANDOM 234 mg/dL (74-106); SGOT/AST 20 U/L (15-37); SGPT/ALT 19 U/L (12-78); TOT PROT 6.6 g/dl (6.4-8.2)
[2016-11-15] MEDS: ENOXAPARIN NA (PORCINE) 40 MG/0.4 ML DISP.SYRIN SQ SCH (09:19)
[2016-11-15] MEDS: VANCOMYCIN 1,500 MG in SODIUM CHLORIDE 500 ML IVPB SCH (09:56)
--- NOTE | 2016-11-15 11:32 | PN ---
Progress Note, Physician Chief Complaint: no complaints feels well - Current Medication List Current Medications: Active Medications Acetaminophen (Tylenol -) 650 mg PO Q6H PRN PRN Reason: FEVER OR PAIN Aspirin (Asa -) 81 mg PO DAILY [facility] Atorvastatin Calcium (Lipitor -) 20 mg PO HS [facility] Last Admin: 11/14/16 22:10 Dose: 20 mg Enoxaparin Sodium (Lovenox -) 40 mg SQ DAILY [facility] Last Admin: 11/15/16 09:19 Dose: 40 mg Glipizide (Glucotrol -) 10 mg PO BIDI [facility] Last Admin: 11/15/16 06:01 Dose: 10 mg Hydromorphone HCl (Dilaudid Injection -) 1 mg IVPB Q3H PRN PRN Reason: PAIN LEVEL 1-5 Last Admin: 11/13/16 21:44 Dose: 1 mg Hydromorphone HCl (Dilaudid Injection -) 2 mg IVPB Q3H PRN PRN Reason: PAIN LEVEL 6-10 Last Admin: 11/15/16 06:02 Dose: 2 mg Vancomycin HCl 1,500 mg/ (Sodium Chloride) 500 mls @ 250 mls/hr IVPB DAILY [facility] PRN Reason: Protocol Last Admin: 11/15/16 09:56 Dose: 250 mls/hr Insulin Aspart (Novolog Vial Sliding Scale -) 1 vial SQ ACHS [facility] PRN Reason: Protocol Last Admin: 11/15/16 06:24 Dose: 5 units Insulin Detemir (Levemir Vial) 30 units SQ HS [facility] Last Admin: 11/14/16 22:12 Dose: 30 units Piperacillin Sod/Tazobactam Sod (Zosyn 3.375gm Ivpb (Pre-Docked)) 3.375 gm IVPB Q8H-IV [facility] PRN Reason: Protocol Last Admin: 11/15/16 09:19 Dose: 3.375 gm - Objective Vital Signs: Vital Signs Temperature 98.6 F 11/15/16 09:19 Pulse Rate 88 11/15/16 09:19 Respiratory Rate 18 11/15/16 09:19 Blood Pressure 140/60 11/15/16 09:19 O2 Sat by Pulse Oximetry (%) 100 11/14/16 21:00 Constitutional: Yes: No Distress Cardiovascular: Yes: Regular Rate and Rhythm Respiratory: Yes: CTA Bilaterally Gastrointestinal: Yes: Normal Bowel Sounds, Soft, Abdomen, Obese. No: Tenderness Extremities: Yes: Other (left BKA) Edema: No Labs: CBC, BMP 11/15/16 06:00 11/15/16 06:00 INR, PTT INR 1.25 (0.82-1.09) H 11/13/16 06:50 Problem List - Problems (1) Anxiety disorder due to known physiological condition Code(s): F06.4 - ANXIETY DISORDER DUE TO KNOWN PHYSIOLOGICAL CONDITION (2) Chronic osteomyelitis Code(s): M86.60 - OTHER CHRONIC OSTEOMYELITIS, UNSPECIFIED SITE (3) Chronic renal insufficiency, stage III (moderate) Code(s): N18.3 - CHRONIC KIDNEY DISEASE, STAGE 3 (MODERATE) (4) Diabetes 1.5, managed as type 1 Code(s): E13.9 - OTHER SPECIFIED DIABETES MELLITUS WITHOUT COMPLICATIONS (5) Anemia Code(s): D64.9 - ANEMIA, UNSPECIFIED Qualifiers: Anemia type: other cause (6) CAD (coronary artery disease) Code(s): I25.10 - ATHSCL HEART DISEASE OF [place] CORONARY ARTERY W/O ANG PCTRS (7) Diabetes Code(s): E11.9 - TYPE 2 DIABETES MELLITUS WITHOUT COMPLICATIONS Qualifiers: Diabetes mellitus type: type 1 Diabetes mellitus complication status: with circulatory complication Diabetes mellitus complication detail: with peripheral angiopathy without gangrene Qualified Code(s): E10.51 - Type 1 diabetes mellitus with diabetic peripheral angiopathy without gangrene Assessment/Plan PLAN IV antibiotics per ID-- dc today pain control incentive spirometry labs good DVT prophylaxis- Lovenox check H/HCT control BGM will need SNF
--- NOTE | 2016-11-15 14:28 | PATH ---
Surgical Pathology Report Patient Name: BRITNI OVIEDO Med. Rec. #: [id number] /Age/Gender: 1965 (Age: 51) / M Account: [id number] Location: [facility] MED/SURG Taken: 11/13/2016 Received: 11/14/2016 Reported: 11/15/2016 Physicians: Nguyễn Tejada M.D. Specimen(s) Received LEFT LEG & FOOT (BKA) Clinical History Cellulitis left leg Final Diagnosis LEG AND FOOT, LEFT, BELOW KNEE AMPUTATION: EXTENSIVELY ULCERATED AND NECROTIC SKIN AND UNDERLYING SOFT TISSUE WITH ACUTE NECROTIZING INFLAMMATION AND GANGRENOUS NECROSIS. UNDERLYING BONE WITH CHRONIC OSTEOMYELITIS. ARTERIES WITH MILD ATHEROSCLEROSIS. SKIN AND SOFT TISSUE AT RESECTION MARGIN APPEAR VIABLE. BONE AT RESECTION MARGIN APPEARS VIABLE. Electronically Signed German Welch M.D. Gross Description Received fresh labeled "left leg below the knee and foot" is a 36 cm in length product of a left below the knee amputation. The foot measures 26 cm from heel to toe. There is a 3.5 cm in length exposed portion of tibia and a 5.5 cm in length exposed portion of fibula at the proximal aspect of the specimen. The volar surface of the heel displays an 8.5 x 5.5 cm ulcerated lesion. The lesion appears to involve the underlying bone. The vasculature displays mild atherosclerosis. [employer] sections are submitted in 7 cassettes as follows: 1-lesion; 2-bone underlying lesion, following decalcification; 3-skin and soft tissue margin; 4-bone marrow from margin, following decalcification; 5-anterior tibial artery; 6-posterior tibial artery; 7-dorsalis pedis. /11/14/2016 [facility]/11/14/2016
[2016-11-15] MEDS: ATORVASTATIN CA 20 MG TABLET (FP) PO SCH (22:02)
[2016-11-15] MEDS: INSULIN DETEMIR 100 UNITS/ML MDV SQ SCH (22:03)
[2016-11-16] MEDS: HYDROmorphone HCL CARPU-JECT 2 MG/1 ML DISP.SYRIN IVPB PRN ×2 (01:20→08:38)
[2016-11-16] MEDS: PIPERACILLIN/TAZOB 3.375 GM/50 ML PRE-DOCKED IVPB SCH ×2 (02:09→18:58)
[2016-11-16] MEDS: glipiZIDE 10 MG TABLET (FP) PO SCH ×2 (06:18→16:50)
[2016-11-16] MEDS: INSULIN SLIDING SCALE (NOVOLOG) 1 VIAL SQ SCH ×4 (06:18→22:07)
[2016-11-16 07:38] LABS: MCHC 30.8 g/dl (32.0-35.9); MEAN CELL VOLUME 68.1 fl (80-96); MEAN PLT VOLUME 7.1 fl (7.5-11.1); PLATELET COUNT 303 K/MM3 (134-434); RDW 24.1 % (11.9-15.9); WHITE BLOOD COUNT 6.9 K/mm3 (4.0-10.0)
--- NOTE | 2016-11-16 08:35 | PN ---
Progress Note (short form) - Note Progress Note: POD #3 Alert. Doing well. C/o incisional tenderness. Pain control via PRN meds. AVSS. Afebrile. CBC, BMP 11/16/16 06:00 11/15/16 06:00 PE General: alert. nad LLE: BKA stump looks good. [place] intact. Flaps viable. No hematoma Problem List - Problems (1) Status post below knee amputation of left lower extremity Assessment/Plan: Due to Chronic osteomyelitis left calcaneus. Dressing changed on rounds. PT ordered OOB to chair Regular diet Pain management PRN dc planning to rehab Cont care per medicine Code(s): Z89.512 - ACQUIRED ABSENCE OF LEFT LEG BELOW KNEE
--- NOTE | 2016-11-16 11:15 | PN ---
Progress Note, Physician Chief Complaint: no complaints feels well seen by Surgeon today- dressing changed - Current Medication List Current Medications: Active Medications Acetaminophen (Tylenol -) 650 mg PO Q6H PRN PRN Reason: FEVER OR PAIN Aspirin (Asa -) 81 mg PO DAILY [facility] Atorvastatin Calcium (Lipitor -) 20 mg PO HS [facility] Last Admin: 11/15/16 22:02 Dose: 20 mg Docusate Sodium (Colace -) 100 mg PO TID [facility] Enoxaparin Sodium (Lovenox -) 40 mg SQ DAILY [facility] Last Admin: 11/15/16 09:19 Dose: 40 mg Glipizide (Glucotrol -) 10 mg PO BIDI [facility] Last Admin: 11/16/16 06:18 Dose: 10 mg Hydromorphone HCl (Dilaudid Injection -) 1 mg IVPB Q3H PRN PRN Reason: PAIN LEVEL 1-5 Last Admin: 11/13/16 21:44 Dose: 1 mg Insulin Aspart (Novolog Vial Sliding Scale -) 1 vial SQ [facility] PRN Reason: Protocol Last Admin: 11/16/16 06:18 Dose: Not Given Insulin Detemir (Levemir Vial) 30 units SQ [facility] Last Admin: 11/15/16 22:03 Dose: 30 units Oxycodone HCl (Roxicodone -) 10 mg PO Q6H PRN PRN Reason: PAIN - Objective Vital Signs: Vital Signs Temperature 98.6 F 11/16/16 06:20 Pulse Rate 88 11/16/16 06:20 Respiratory Rate 20 11/16/16 06:20 Blood Pressure 122/69 11/16/16 06:20 O2 Sat by Pulse Oximetry (%) 99 11/15/16 20:15 Constitutional: Yes: No Distress, Calm Cardiovascular: Yes: Regular Rate and Rhythm Respiratory: Yes: CTA Bilaterally Gastrointestinal: Yes: Normal Bowel Sounds, Soft, Abdomen, Obese. No: Distention, Tenderness Extremities: Yes: Other (left BKA) Edema: No Labs: CBC, BMP 11/16/16 06:00 11/15/16 06:00 INR, PTT INR 1.25 (0.82-1.09) H 11/13/16 06:50 Problem List - Problems (1) Anxiety disorder due to known physiological condition Code(s): F06.4 - ANXIETY DISORDER DUE TO KNOWN PHYSIOLOGICAL CONDITION (2) Chronic osteomyelitis Code(s): M86.60 - OTHER CHRONIC OSTEOMYELITIS, UNSPECIFIED SITE (3) Chronic renal insufficiency, stage III (moderate) Code(s): N18.3 - CHRONIC KIDNEY DISEASE, STAGE 3 (MODERATE) (4) Diabetes 1.5, managed as type 1 Code(s): E13.9 - OTHER SPECIFIED DIABETES MELLITUS WITHOUT COMPLICATIONS (5) Anemia Code(s): D64.9 - ANEMIA, UNSPECIFIED Qualifiers: Anemia type: other cause (6) CAD (coronary artery disease) Code(s): I25.10 - ATHSCL HEART DISEASE OF [place] CORONARY ARTERY W/O ANG PCTRS (7) Diabetes Code(s): E11.9 - TYPE 2 DIABETES MELLITUS WITHOUT COMPLICATIONS Qualifiers: Diabetes mellitus type: type 1 Diabetes mellitus complication status: with circulatory complication Diabetes mellitus complication detail: with peripheral angiopathy without gangrene Qualified Code(s): E10.51 - Type 1 diabetes mellitus with diabetic peripheral angiopathy without gangrene Assessment/Plan PLAN IV antibiotics-- dc pain control-- change to PO Oxycodone as needed PT eval incentive spirometry labs good DVT prophylaxis- Lovenox check H/HCT control BGM will need SNF-- dc planning-- pt prefers [facility] -- spoke with case workers- - caseworker protective services from [facility] came yesterday to evaluate the case.
[2016-11-16] MEDS ORDERED: INSULIN (NOVOLOG) ASPART 100 UNITS/ML 10ML VIAL ONE (11:42)
[2016-11-16] MEDS: ENOXAPARIN NA (PORCINE) 40 MG/0.4 ML DISP.SYRIN SQ SCH (11:45)
[2016-11-16] MEDS: VANCOMYCIN 1,500 MG in SODIUM CHLORIDE 500 ML IVPB SCH (12:37)
[2016-11-16] MEDS: DOCUSATE SODIUM 100 MG CAPSULE (FP) PO SCH ×2 (14:24→21:13)
[2016-11-16] MEDS: HYDROmorphone HCL CARPU-JECT 1 MG/1 ML DISP.SYRIN IVPB PRN ×2 (14:59→23:03)
[2016-11-16] MEDS ORDERED: glipiZIDE 5 MG TABLET (FP) ONE (17:16)
[2016-11-16] MEDS: INSULIN DETEMIR 100 UNITS/ML MDV SQ SCH (22:00)
[2016-11-16] MEDS: ATORVASTATIN CA 20 MG TABLET (FP) PO SCH (22:07)
[2016-11-17] MEDS: INSULIN SLIDING SCALE (NOVOLOG) 1 VIAL SQ SCH ×4 (06:18→21:19)
[2016-11-17] MEDS: glipiZIDE 10 MG TABLET (FP) PO SCH ×2 (06:18→16:40)
[2016-11-17] MEDS: DOCUSATE SODIUM 100 MG CAPSULE (FP) PO SCH ×3 (06:18→21:16)
[2016-11-17] MEDS ORDERED: INSULIN (NOVOLOG) ASPART 100 UNITS/ML 10ML VIAL ONE ×2 (07:13→16:45)
--- NOTE | 2016-11-17 07:57 | PN ---
Progress Note (short form) - Note Progress Note: SUBJECTIVE: Patient seen and examined. Chart reviewed. Comfortable. Denies pain. OBJECTIVE: Vital Signs - 8 hr 11/17/16 11/17/16 06:00 08:26 Temperature 98.3 F Pulse Rate 82 Respiratory 20 20 Rate Blood Pressure 117/73 O2 Sat by Pulse 98 Oximetry (%) Intake & Output 11/16/16 11/17/16 11/17/16 23:59 07:59 15:59 Intake Total 200 50 Output Total 400 Balance 200 -350 Intake: IVPB 50 Oral 200 Output: Urine 400 Void 400 Other: Voiding Method Urinal Urinal Bowel Movement Yes # Bowel Movements 1 Active Medications Acetaminophen (Tylenol -) 650 mg PO Q6H PRN PRN Reason: FEVER OR PAIN Aspirin (Asa -) 81 mg PO DAILY [facility] Atorvastatin Calcium (Lipitor -) 20 mg PO [facility] Last Admin: 11/16/16 22:07 Dose: 20 mg Docusate Sodium (Colace -) 100 mg PO TID [facility] Last Admin: 11/17/16 06:18 Dose: 100 mg Enoxaparin Sodium (Lovenox -) 40 mg SQ DAILY [facility] Last Admin: 11/16/16 11:45 Dose: 40 mg Glipizide (Glucotrol -) 10 mg PO BIDI [facility] Last Admin: 11/17/16 06:18 Dose: 10 mg Hydromorphone HCl (Dilaudid Injection -) 1 mg IVPB Q3H PRN PRN Reason: PAIN LEVEL 1-5 Last Admin: 11/16/16 23:03 Dose: 1 mg Insulin Aspart (Novolog Vial Sliding Scale -) 1 vial SQ [facility] PRN Reason: Protocol Last Admin: 11/17/16 06:18 Dose: Not Given Insulin Detemir (Levemir Vial) 30 units SQ [facility] Last Admin: 11/16/16 22:00 Dose: 30 units Oxycodone HCl (Roxicodone -) 10 mg PO Q6H PRN PRN Reason: PAIN CBC, BMP 11/16/16 06:00 11/15/16 06:00 Laboratory Results - last 24 hr 11/16/16 11/16/16 11/16/16 11:47 17:36 21:11 POC Glucometer 192 212 253 PHYSICAL EXAMINATION: Constitutional: Yes: No Distress, Calm Cardiovascular: Yes: Regular Rate and Rhythm Respiratory: Yes: CTA Bilaterally Gastrointestinal: Yes: Normal Bowel Sounds, Soft, Abdomen, Obese. No: Distention, Tenderness Extremities: Yes: Other (left BKA) Edema: No ASSESSMENT & PLAN: - Status post left below the knee amputation- Post operative day #4. - Off antibiotics. - Clinically stable. - Dressing changed yesterday. - Blood pressure and blood sugars are under control. - Discharge planning work in progress. - Anticipate discharge on Sunday. - Will follow. Documentation prepared by Alicja Brambila, acting as a medical office scheduler for Nas Platt MD. <Alicja Brambila - Last Filed: 11/17/16 10:34> Problem List - Problems (1) Chronic osteomyelitis Code(s): M86.60 - OTHER CHRONIC OSTEOMYELITIS, UNSPECIFIED SITE (2) Diabetes 1.5, managed as type 1 Code(s): E13.9 - OTHER SPECIFIED DIABETES MELLITUS WITHOUT COMPLICATIONS (3) Abnormal EKG Code(s): R94.31 - ABNORMAL ELECTROCARDIOGRAM [ECG] [EKG] (4) Anemia Code(s): D64.9 - ANEMIA, UNSPECIFIED Qualifiers: Anemia type: other cause (5) CAD (coronary artery disease) Code(s): I25.10 - ATHSCL HEART DISEASE OF [place] CORONARY ARTERY W/O ANG PCTRS (6) Chronic renal insufficiency, stage III (moderate) Code(s): N18.3 - CHRONIC KIDNEY DISEASE, STAGE 3 (MODERATE) <Nas Platt - Last Filed: 11/17/16 07:57>
[2016-11-17] MEDS: ENOXAPARIN NA (PORCINE) 40 MG/0.4 ML DISP.SYRIN SQ SCH (10:38)
[2016-11-17] MEDS: ASPIRIN 81 MG CHEWABLE TABLETS PO SCH (10:38)
[2016-11-17] MEDS ORDERED: glipiZIDE 5 MG TABLET (FP) ONE (16:28)
[2016-11-17] MEDS: ATORVASTATIN CA 20 MG TABLET (FP) PO SCH (21:16)
[2016-11-17] MEDS: INSULIN DETEMIR 100 UNITS/ML MDV SQ SCH (21:17)
[2016-11-17] MEDS: oxyCODONE HCL 5 MG TABLET PO PRN (23:34)
[2016-11-17] MEDS: ACETAMINOPHEN 325 MG TABLET (FP) PO PRN (23:35)
[2016-11-18] MEDS ORDERED: glipiZIDE 5 MG TABLET (FP) ONE ×2 (05:39→17:26)
[2016-11-18] MEDS: INSULIN SLIDING SCALE (NOVOLOG) 1 VIAL SQ SCH ×4 (06:11→23:06)
[2016-11-18] MEDS: glipiZIDE 10 MG TABLET (FP) PO SCH ×2 (06:11→17:44)
[2016-11-18] MEDS: DOCUSATE SODIUM 100 MG CAPSULE (FP) PO SCH ×3 (06:11→23:06)
[2016-11-18] MEDS ORDERED: INSULIN (NOVOLOG) ASPART 100 UNITS/ML 10ML VIAL ONE (09:56)
[2016-11-18] MEDS: ASPIRIN 81 MG CHEWABLE TABLETS PO SCH (10:00)
[2016-11-18] MEDS: ENOXAPARIN NA (PORCINE) 40 MG/0.4 ML DISP.SYRIN SQ SCH (10:00)
--- NOTE | 2016-11-18 11:00 | PN ---
Progress Note (short form) - Note Progress Note: VSS Less pain Stump wound clean and dry, flaps viable. OK for transfer to rehab when bed available. Problem List - Problems (1) Chronic osteomyelitis Code(s): M86.60 - OTHER CHRONIC OSTEOMYELITIS, UNSPECIFIED SITE (2) Diabetes Code(s): E11.9 - TYPE 2 DIABETES MELLITUS WITHOUT COMPLICATIONS Qualifiers: Diabetes mellitus type: type 1 Diabetes mellitus complication status: with circulatory complication Diabetes mellitus complication detail: with peripheral angiopathy without gangrene Qualified Code(s): E10.51 - Type 1 diabetes mellitus with diabetic peripheral angiopathy without gangrene
--- NOTE | 2016-11-18 11:36 | PN ---
Progress Note, Physician Chief Complaint: no distress feels well not using pain meds as much - Current Medication List Current Medications: Active Medications Acetaminophen (Tylenol -) 650 mg PO Q6H PRN PRN Reason: FEVER OR PAIN Last Admin: 11/17/16 23:35 Dose: 650 mg Aspirin (Asa -) 81 mg PO DAILY [facility] Last Admin: 11/18/16 10:00 Dose: 81 mg Atorvastatin Calcium (Lipitor -) 20 mg PO HS [facility] Last Admin: 11/17/16 21:16 Dose: 20 mg Docusate Sodium (Colace -) 100 mg PO TID [facility] Last Admin: 11/18/16 06:11 Dose: 100 mg Enoxaparin Sodium (Lovenox -) 40 mg SQ DAILY [facility] Last Admin: 11/18/16 10:00 Dose: 40 mg Glipizide (Glucotrol -) 10 mg PO BIDI [facility] Last Admin: 11/18/16 06:11 Dose: 10 mg Insulin Aspart (Novolog Vial Sliding Scale -) 1 vial SQ [facility] PRN Reason: Protocol Last Admin: 11/18/16 06:11 Dose: Not Given Insulin Detemir (Levemir Vial) 30 units SQ [facility] Last Admin: 11/17/16 21:17 Dose: 30 units Oxycodone HCl (Roxicodone -) 10 mg PO Q6H PRN PRN Reason: PAIN Last Admin: 11/17/16 23:34 Dose: 10 mg - Objective Vital Signs: Vital Signs Temperature 98.3 F 11/18/16 05:00 Pulse Rate 73 11/18/16 05:00 Respiratory Rate 18 11/18/16 05:00 Blood Pressure 131/71 11/18/16 05:00 O2 Sat by Pulse Oximetry (%) 98 11/17/16 21:00 Constitutional: Yes: No Distress Cardiovascular: Yes: Regular Rate and Rhythm Respiratory: Yes: CTA Bilaterally Gastrointestinal: Yes: Normal Bowel Sounds, Soft. No: Tenderness Extremities: Yes: Other (left BKA) Edema: No Labs: CBC, BMP 11/16/16 06:00 11/15/16 06:00 INR, PTT INR 1.25 (0.82-1.09) H 11/13/16 06:50 Problem List - Problems (1) Anxiety disorder due to known physiological condition Code(s): F06.4 - ANXIETY DISORDER DUE TO KNOWN PHYSIOLOGICAL CONDITION (2) Chronic osteomyelitis Code(s): M86.60 - OTHER CHRONIC OSTEOMYELITIS, UNSPECIFIED SITE (3) Chronic renal insufficiency, stage III (moderate) Code(s): N18.3 - CHRONIC KIDNEY DISEASE, STAGE 3 (MODERATE) (4) Diabetes 1.5, managed as type 1 Code(s): E13.9 - OTHER SPECIFIED DIABETES MELLITUS WITHOUT COMPLICATIONS (5) Anemia Code(s): D64.9 - ANEMIA, UNSPECIFIED (6) CAD (coronary artery disease) Code(s): I25.10 - ATHSCL HEART DISEASE OF [place] CORONARY ARTERY W/O ANG PCTRS (7) Diabetes Code(s): E11.9 - TYPE 2 DIABETES MELLITUS WITHOUT COMPLICATIONS Qualifiers: Qualified Code(s): E10.51 - Type 1 diabetes mellitus with diabetic peripheral angiopathy without gangrene Assessment/Plan PLAN IV antibiotics-- dc pain control--on PO Oxycodone as needed PT eval incentive spirometry labs good DVT prophylaxis- Lovenox check H/HCT control BGM will need SNF-- dc planning-- [facility] --special education case manager from [place] to evaluate the case.
--- NOTE | 2016-11-18 12:14 | PN ---
Progress Note (short form) - Note Progress Note: The patient was in good spirits today. He shared a photo of his foot prior to its amputation. The patient also shared personal history of his grandfather's suicide by gun and his grandmother's deterioration thereafter. She developed throat cancer and allegedly when she could not swallow her saliva. The patient is coping well in spite of the amputation of a foot. He still appears to experience anxiety and depression associated with past losses and current health issues. However, his positive attitude and optimism indeed should help with a positive prognosis for healing. The patient will be followed upon discharge after rehabilitation. 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
[2016-11-18] MEDS: ATORVASTATIN CA 20 MG TABLET (FP) PO SCH (23:06)
[2016-11-18] MEDS: INSULIN DETEMIR 100 UNITS/ML MDV SQ SCH (23:07)
[2016-11-19] MEDS: ACETAMINOPHEN 325 MG TABLET (FP) PO PRN ×2 (01:25→22:34)
[2016-11-19] MEDS: oxyCODONE HCL 5 MG TABLET PO PRN ×2 (01:26→22:33)
[2016-11-19] MEDS ORDERED: glipiZIDE 5 MG TABLET (FP) ONE ×2 (06:29→17:25)
[2016-11-19] MEDS: DOCUSATE SODIUM 100 MG CAPSULE (FP) PO SCH ×3 (07:00→22:33)
[2016-11-19] MEDS: glipiZIDE 10 MG TABLET (FP) PO SCH ×2 (07:00→17:32)
[2016-11-19] MEDS: INSULIN SLIDING SCALE (NOVOLOG) 1 VIAL SQ SCH ×4 (07:02→22:34)
--- NOTE | 2016-11-19 09:38 | PN ---
Progress Note (short form) - Note Progress Note: no complaints feels well Vital Signs - 24 hr 11/18/16 11/18/16 11/18/16 14:14 18:00 21:00 Temperature 98.2 F 98.2 F Pulse Rate 73 90 Respiratory 20 20 Rate Blood Pressure 134/67 O2 Sat by Pulse 98 Oximetry (%) 11/18/16 11/19/16 22:00 05:52 Temperature 99.0 F 98.2 F Pulse Rate 90 78 Respiratory 20 20 Rate Blood Pressure 140/71 125/75 O2 Sat by Pulse Oximetry (%) Current Medications Generic Name Dose Route Start Last Admin Trade Name Freq PRN Reason Stop Dose Admin Acetaminophen 650 mg 11/13/16 19:20 11/19/16 01:25 Tylenol - PO 650 mg Q6H PRN Administration FEVER OR PAIN Aspirin 81 mg 11/14/16 10:00 11/18/16 10:00 Asa - PO 81 mg DAILY [facility] Administration Atorvastatin Calcium 20 mg 11/13/16 22:00 11/18/16 23:06 Lipitor - PO 20 mg HS TIMMY Administration Docusate Sodium 100 mg 11/16/16 14:00 11/19/16 07:00 Colace - PO 100 mg TID TIMMY Administration Enoxaparin Sodium 40 mg 11/15/16 10:00 11/18/16 10:00 Lovenox - SQ 40 mg DAILY [facility] Administration Glipizide 10 mg 11/15/16 07:00 11/19/16 07:00 Glucotrol - PO 10 mg BIDI TIMMY Administration Insulin Aspart 1 vial 11/13/16 22:00 11/19/16 07:02 Novolog Vial Sliding Scale - SQ Not Given ACHS [facility] Protocol Insulin Detemir 30 units 11/13/16 22:00 11/18/16 23:07 Levemir Vial SQ 30 units HS [facility] Administration Oxycodone HCl 10 mg 11/16/16 11:12 11/19/16 01:26 Roxicodone - PO 10 mg Q6H PRN Administration PAIN Laboratory Results - last 24 hr 11/18/16 11/18/16 11/18/16 11:17 17:13 23:05 POC Glucometer 159 189 196 11/19/16 07:01 POC Glucometer 113 s1 S2 RRR Lungs clear Abd- soft, NT No edema Left BKA- stump dressed PLAN- continue with current meds glucose control awaiting transfer to rehab Problem List - Problems (1) Anxiety disorder due to known physiological condition Code(s): F06.4 - ANXIETY DISORDER DUE TO KNOWN PHYSIOLOGICAL CONDITION (2) Chronic osteomyelitis Code(s): M86.60 - OTHER CHRONIC OSTEOMYELITIS, UNSPECIFIED SITE (3) Chronic renal insufficiency, stage III (moderate) Code(s): N18.3 - CHRONIC KIDNEY DISEASE, STAGE 3 (MODERATE) (4) Diabetes 1.5, managed as type 1 Code(s): E13.9 - OTHER SPECIFIED DIABETES MELLITUS WITHOUT COMPLICATIONS (5) Anemia Code(s): D64.9 - ANEMIA, UNSPECIFIED (6) CAD (coronary artery disease) Code(s): I25.10 - ATHSCL HEART DISEASE OF [place] CORONARY ARTERY W/O ANG PCTRS (7) Diabetes Code(s): E11.9 - TYPE 2 DIABETES MELLITUS WITHOUT COMPLICATIONS Qualifiers: Qualified Code(s): E10.51 - Type 1 diabetes mellitus with diabetic peripheral angiopathy without gangrene
[2016-11-19] MEDS: ASPIRIN 81 MG CHEWABLE TABLETS PO SCH (11:00)
[2016-11-19] MEDS: ENOXAPARIN NA (PORCINE) 40 MG/0.4 ML DISP.SYRIN SQ SCH (11:00)
[2016-11-19] MEDS ORDERED: INSULIN (NOVOLOG) ASPART 100 UNITS/ML 10ML VIAL ONE (11:13)
[2016-11-19] MEDS: ATORVASTATIN CA 20 MG TABLET (FP) PO SCH (22:33)
[2016-11-19] MEDS: INSULIN DETEMIR 100 UNITS/ML MDV SQ SCH (22:33)
[2016-11-20 05:42] VITALS: TEMP 97.8
[2016-11-20] MEDS ORDERED: glipiZIDE 5 MG TABLET (FP) ONE (06:30)
[2016-11-20] MEDS: DOCUSATE SODIUM 100 MG CAPSULE (FP) PO SCH (06:58)
[2016-11-20] MEDS: glipiZIDE 10 MG TABLET (FP) PO SCH (06:59)
[2016-11-20] MEDS: INSULIN SLIDING SCALE (NOVOLOG) 1 VIAL SQ SCH ×2 (07:01→11:51)
--- NOTE | 2016-11-20 08:27 | DS ---
Physical Examination Vital Signs: Vital Signs Temperature 97.8 F 11/20/16 05:41 Pulse Rate 83 11/20/16 05:41 Respiratory Rate 20 11/20/16 05:41 Blood Pressure 121/66 11/20/16 05:41 O2 Sat by Pulse Oximetry (%) 100 11/19/16 21:00 Labs: CBC, BMP 11/16/16 06:00 11/15/16 06:00 <Nas Platt - Last Filed: 11/20/16 08:26> Vital Signs: Vital Signs Temperature 97.8 F 11/20/16 05:41 Pulse Rate 83 11/20/16 05:41 Respiratory Rate 20 11/20/16 05:41 Blood Pressure 121/66 11/20/16 05:41 O2 Sat by Pulse Oximetry (%) 100 11/19/16 21:00 Findings/Remarks: Patient seen and examined. Chart reviewed. Comfortable. No complaints. Constitutional: Yes: No Distress, Calm Eyes: Yes: Conjunctiva Clear Neck: Yes: Supple Cardiovascular: Yes: Regular Rate and Rhythm Respiratory: Yes: CTA Bilaterally Gastrointestinal: Yes: Soft Edema: (s/p Left DKA) Edema: RLE: Trace Labs: CBC, BMP 11/16/16 06:00 11/15/16 06:00 <Rina Bauer - Last Filed: 11/20/16 09:44> Discharge Summary Reason For Visit: CELLULITIS OF FOOT Current Active Problems Anxiety about health (Acute) Anxiety disorder due to known physiological condition (Acute) Cellulitis of foot (Acute) Chronic osteomyelitis (Acute) Chronic renal insufficiency, stage III (moderate) (Acute) Diabetes 1.5, managed as type 1 (Acute) Status post below knee amputation of left lower extremity (Acute) - Home Medications Comprehensive Discharge Medication List: Ambulatory Orders Glipizide [Glucotrol -] 10 mg PO BID@0700,1630 #0 tablet 10/29/14 Aspirin [ASA -] 81 mg PO DAILY 12/04/14 Acetaminophen [Tylenol .Regular Strength -] 650 mg PO Q4H PRN #0 tablet Simvastatin 40 mg PO DAILY 08/25/15 Hydrochlorothiazide [Hctz -] 25 mg PO DAILY 11/04/16 Docusate Sodium [Colace -] 100 mg PO TID #60 amp 11/20/16 Enoxaparin [Lovenox -] 40 mg SQ DAILY #30 supp 11/20/16 Insulin (Levemir) [Levemir Vial] 30 units SQ HS #30 ml 11/20/16 Insulin Sliding Scale [Novolog Vial Sliding Scale -] 1 vial SQ ACHS units 11/20 Oxycodone HCl [Roxicodone -] 10 mg PO Q6H PRN #60 tablet MDD 3 11/20/16 <Nas Platt - Last Filed: 11/20/16 08:26> Current Active Problems Anxiety about health (Acute) Anxiety disorder due to known physiological condition (Acute) Cellulitis of foot (Acute) Chronic osteomyelitis (Acute) Chronic renal insufficiency, stage III (moderate) (Acute) Diabetes 1.5, managed as type 1 (Acute) Status post below knee amputation of left lower extremity (Acute) Hospital Course: Patient admitted for LLE wound. Chronic osteo and not healing. Patient underwent Left BKA. Post op course uncomplicated. Now, medically stable for discharge. Awaiting evaluation from [facility]. Anticipate d/c today if accepted. Meds reconciled. Patient also going to sign healthcare proxy form today. Discussed with nursing staff also. Documentation prepared by Rina Bauer, acting as a certified medical technician for Nas Platt MD. - Home Medications Comprehensive Discharge Medication List: Ambulatory Orders Glipizide [Glucotrol -] 10 mg PO BID@0700,1630 #0 tablet 10/29/14 Aspirin [ASA -] 81 mg PO DAILY 12/04/14 Acetaminophen [Tylenol .Regular Strength -] 650 mg PO Q4H PRN #0 tablet Simvastatin 40 mg PO DAILY 08/25/15 Hydrochlorothiazide [Hctz -] 25 mg PO DAILY 11/04/16 Docusate Sodium [Colace -] 100 mg PO TID #60 amp 11/20/16 Enoxaparin [Lovenox -] 40 mg SQ DAILY #30 supp 11/20/16 Insulin (Levemir) [Levemir Vial] 30 units SQ HS #30 ml 11/20/16 Insulin Sliding Scale [Novolog Vial Sliding Scale -] 1 vial SQ ACHS units 11/20 Oxycodone HCl [Roxicodone -] 10 mg PO Q6H PRN #60 tablet MDD 3 11/20/16 <Rina Bauer - Last Filed: 11/20/16 09:44> Condition: Fair - Instructions Referrals: Nas Platt MD [Primary Care Provider] - Nguyễn Tejada MD [Staff Physician] -
[2016-11-20] MEDS: ASPIRIN 81 MG CHEWABLE TABLETS PO SCH (10:10)
[2016-11-20] MEDS: ENOXAPARIN NA (PORCINE) 40 MG/0.4 ML DISP.SYRIN SQ SCH (10:10)
[2016-11-20 10:18] VITALS: BP 135/73; PULSE 91
--- NOTE | 2016-11-20 13:11 | PN ---
Progress Note (short form) - Note Progress Note: Vascular Surgery- Dr. Tejada Patient seen and examined. Patient feels well, pain controlled, awaiting discharge to rehab. No complaints. Last Vital Signs Temp Pulse Resp BP Pulse Ox 97.8 F 91 H 16 135/73 100 11/20/16 10:11/20/16 10:11/20/16 10:11/20/16 10:11/19/16 21:00 Exam: Gen: NAD LLE: s/p BKA, healing well, skin nicely approximated, [place] intact, no drainage or surrounding erythema A/P s/p left BKA 11/13/16 dressing changed on rounds awaiting [facility] Call office for follow-up with Dr. Tejada in the next 2-3 weeks
== END 2016-11-20 14:07 | DRG 240 ==
LOC: JER 16:57 → JERBED 18:47 → UNDOADMIN 18:50 → JERBED 18:50 → J4S 11-05 20:52 → J7W 11-06 15:07
PROVIDERS: ADMIT Internal Medicine; ATTEND Internal Medicine
PROC: 0Y6J0Z1 Detachment at Left Lower Leg, High, Open Approach (ICD-10-PCS; principal; 2016-11-04)
PROC: 30233N1 Transfusion of Nonautologous Red Blood Cells into Peripheral Vein, Percutaneous Approach (ICD-10-PCS; 2016-11-05)
DX: E11.52 Type 2 diabetes mellitus with diabetic peripheral angiopathy with gangrene (principal); L97.429 Non-pressure chronic ulcer of left heel and midfoot with unspecified severity; M86.68 Other chronic osteomyelitis, other site; L03.116 Cellulitis of left lower limb; Z68.41 Body mass index [BMI] 40.0-44.9, adult; E11.621 Type 2 diabetes mellitus with foot ulcer; G62.9 Polyneuropathy, unspecified; E78.5 Hyperlipidemia, unspecified; I25.10 Atherosclerotic heart disease of native coronary artery without angina pectoris; I12.9 Hypertensive chronic kidney disease with stage 1 through stage 4 chronic kidney disease, or unspecified chronic kidney disease; E11.22 Type 2 diabetes mellitus with diabetic chronic kidney disease; N18.3 Chronic kidney disease, stage 3 (moderate); F06.4 Anxiety disorder due to known physiological condition; D64.9 Anemia, unspecified; E66.01 Morbid (severe) obesity due to excess calories; Z71.3 Dietary counseling and surveillance; Z89.421 Acquired absence of other right toe(s); Z79.4 Long term (current) use of insulin
CPT/HCPCS: 36415; 36430; 71010-TC; 73630-TC-LT; 80048; 80053; 82272; 83036; 85025; 85027; 85610; 85651; 86140; 86850; 86900; 86901; 86922; 87070; 87077; 87081; 87186; 87205; 88307-TC; 88311-TC; 93005; 93010; 94010; 94760; 97116-GP; 97161-GP; 99285-25; G0480; P9038; P9058